=== PATIENT | male | born 1975 | race Caucasian/White ===

== ENCOUNTER 2021-08-09 17:54 | Emergency (ER) | payer OTHER ==
[2021-08-09 18:29] LABS: #Basophils 0.1 thou/uL (0.0-0.2); #Eosinphils 0.2 thou/uL (0.0-0.7); #Lymphocytes 2.5 thou/uL (1.20-3.40); #Monocytes 0.5 thou/uL (0.11-0.59); #Neutrophils 2.5 thou/uL (1.40-6.50); %Basophils 1.5 % (0.0-1.0); %Eosinophils 3.6 % (0.0-10.0); %Lymphocytes 43.2 % (21.0-51.0); %Monocytes 8.2 % (0.0-10.0); %Neutrophils 43.5 % (42.0-75.0); Hemoglobin 13.7 g/dL (14.0-18.0); Mean Corpuscular Hemoglobin 32.8 pg (27.0-31.0); Mean Corpuscular Volume 96.3 fL (78.0-98.0); Mean Platelet Volume 7.7 fL (7.4-10.4); Platelet Count 257 thou/uL (130-400); RBC Distribution Width 11.5 % (11.5-14.5); Red Blood Cell (RBC) Count 4.17 mill/uL (4.70-6.10); White Blood Cell (WBC) Count 5.7 thou/uL (4.8-10.8)
[2021-08-09 18:35] LABS: Bilirubin Negative (Negative); Blood, Urine Negative (Negative); Clarity Clear (Clear); Glucose, Urine (Dipstick) >=1000 mg/dL (Negative); Ketone, Urine 15 mg/dL (Negative); Leukocyte Negative (Negative); Nitrite Negative (Negative); Protein, Urine (Dipstick) Negative (Neg-Trace); Urobilinogen 0.2 mg/dL (Less than 2); pH, Urine 5.5 (5.0-9.0)
[2021-08-09 18:37] LABS: Specific Gravity, Urine 1.037 (1.002-1.036)
[2021-08-09] MEDS ORDERED: Insulin Regular 300 UNITS/3 ML VIAL ONE (18:45)
[2021-08-09 18:46] LABS: Amphetamine Not Detected (NotDetected); Barbiturates Screen Not Detected (NotDetected); Benzodiazepine Screen Not Detected (NotDetected); Cocaine Metabolite Screen Not Detected (NotDetected); Medtox Control Line Valid? VALID (VALID); Methadone Not Detected (NotDetected); Methamphetamine Not Detected (NotDetected); Opiate Screen Not Detected (NotDetected); Oxycodone Screen Not Detected (NotDetected); Phencyclidine (PCP) Not Detected (NotDetected); THC/Cannabinoid Screen Not Detected (NotDetected); Tricyclic Screen Not Detected (NotDetected)
[2021-08-09 18:47] LABS: ALT (SGPT) 76 U/L (8-55); AST (SGOT) 34 U/L (5-34); Albumin 4.3 g/dL (3.5-5.0); Alkaline Phosphatase 82 U/L (40-110); Anion Gap 15 mmol/L (10-20); BUN (Urea Nitrogen) 16 mg/dL (8.9-20.6); Bilirubin, Total 0.6 mg/dL (0.2-1.2); Calc. Creatinine Clearance 0 mL/min (70-130); Calcium 9.1 mg/dL (7.8-10.44); Carbon Dioxide 25 mmol/L (22-29); Chloride 91 mmol/L (98-107); Globulin 2.3 g/dL (2.4-3.5); Potassium 4.4 mmol/L (3.5-5.1); Protein, Total 6.6 g/dL (6.0-8.3); Sodium 127 mmol/L (136-145)
[2021-08-09 18:49] LABS: Glucose 629 mg/dL (70-105)
== END 2021-08-09 21:18 | disposition home or self-care (01) ==
LOC: BURERS 17:54
DX: E11.65 Type 2 diabetes mellitus with hyperglycemia (principal); I10 Essential (primary) hypertension; F17.210 Nicotine dependence, cigarettes, uncomplicated
CPT/HCPCS: 36416; 71045; 80053; 80306; 80307; 81003; 85025; 93005; 96374; 96376; J1815

== ENCOUNTER 2021-10-28 13:23 | Emergency (ER) | payer OTHER, SELFPAY ==
[2021-10-28 14:07] LABS: #Basophils 0.1 thou/uL (0.0-0.2); #Eosinphils 0.2 thou/uL (0.0-0.7); #Monocytes 0.6 thou/uL (0.11-0.59); #Neutrophils 3.4 thou/uL (1.40-6.50); %Eosinophils 3.1 % (0.0-10.0); %Monocytes 9.2 % (0.0-10.0); %Neutrophils 53.7 % (42.0-75.0); Hemoglobin 13.6 g/dL (14.0-18.0); Mean Corpuscular HGB CONC 35.4 g/dL (32.0-36.0); Mean Corpuscular Hemoglobin 33.3 pg (27.0-31.0); Mean Corpuscular Volume 94.2 fL (78.0-98.0); Platelet Count 297 thou/uL (130-400); RBC Distribution Width 11.1 % (11.5-14.5); Red Blood Cell (RBC) Count 4.07 mill/uL (4.70-6.10); White Blood Cell (WBC) Count 6.4 thou/uL (4.8-10.8)
[2021-10-28 14:14] LABS: Bilirubin Negative (Negative); Blood, Urine Negative (Negative); Clarity Clear (Clear); Glucose, Urine (Dipstick) 500 mg/dL (Negative); Ketone, Urine Negative (Negative); Leukocyte Negative (Negative); Nitrite Negative (Negative); Protein, Urine (Dipstick) Negative (Neg-Trace); Specific Gravity, Urine 1.015 (1.005-1.030)
[2021-10-28 14:25] LABS: ALT (SGPT) 21 U/L (8-55); AST (SGOT) 9 U/L (5-34); Albumin 4.2 g/dL (3.5-5.0); Alkaline Phosphatase 55 U/L (40-110); Anion Gap 15 mmol/L (10-20); BUN (Urea Nitrogen) 7 mg/dL (8.9-20.6); Bilirubin, Total 0.7 mg/dL (0.2-1.2); CK (CPK) 32 U/L (30-200); Calc. Creatinine Clearance 0 mL/min (70-130); Calcium 9.5 mg/dL (7.8-10.44); Carbon Dioxide 28 mmol/L (22-29); Chloride 93 mmol/L (98-107); Globulin 2.5 g/dL (2.4-3.5); Potassium 4.3 mmol/L (3.5-5.1); Protein, Total 6.7 g/dL (6.0-8.3); Sodium 132 mmol/L (136-145)
[2021-10-28 14:27] LABS: Amphetamine Not Detected (NotDetected); Barbiturates Screen Not Detected (NotDetected); Benzodiazepine Screen Not Detected (NotDetected); Cocaine Metabolite Screen Not Detected (NotDetected); Medtox Control Line Valid? VALID (VALID); Methadone Not Detected (NotDetected); Methamphetamine Not Detected (NotDetected); Opiate Screen Not Detected (NotDetected); Oxycodone Screen Not Detected (NotDetected); Phencyclidine (PCP) Not Detected (NotDetected); THC/Cannabinoid Screen Not Detected (NotDetected); Tricyclic Screen Not Detected (NotDetected)
[2021-10-28 14:30] LABS: Glucose 562 mg/dL (70-105)
[2021-10-28] MEDS ORDERED: Insulin Regular 300 UNITS/3 ML VIAL ONE (14:36)
== END 2021-10-28 16:00 | disposition home or self-care (01) ==
LOC: BURERS 13:23
DX: R19.7 Diarrhea, unspecified (principal); E11.65 Type 2 diabetes mellitus with hyperglycemia; I10 Essential (primary) hypertension; F17.210 Nicotine dependence, cigarettes, uncomplicated; Z79.4 Long term (current) use of insulin; Z79.84 Long term (current) use of oral hypoglycemic drugs; Z79.899 Other long term (current) drug therapy
CPT/HCPCS: 36415; 36416; 71045; 80053; 80306; 81003; 82550; 83605; 83880; 84484; 85025; 93005; 96374; J1815

== ENCOUNTER 2021-12-07 21:55 | Emergency (ER) | payer SELFPAY ==
[2021-12-07] MEDS ORDERED: Insulin Regular 300 UNITS/3 ML VIAL ONE (22:21)
[2021-12-07 22:27] LABS: #Basophils 0.1 thou/uL (0.0-0.2); #Eosinphils 0.3 thou/uL (0.0-0.7); #Lymphocytes 2.1 thou/uL (1.20-3.40); #Monocytes 0.6 thou/uL (0.11-0.59); #Neutrophils 3.2 thou/uL (1.40-6.50); %Basophils 1.7 % (0.0-1.0); %Lymphocytes 32.4 % (21.0-51.0); %Monocytes 9.9 % (0.0-10.0); %Neutrophils 50.9 % (42.0-75.0); Hemoglobin 12.9 g/dL (14.0-18.0); Mean Corpuscular HGB CONC 35.8 g/dL (32.0-36.0); Mean Corpuscular Hemoglobin 32.9 pg (27.0-31.0); Mean Corpuscular Volume 91.8 fL (78.0-98.0); Platelet Count 300 thou/uL (130-400); RBC Distribution Width 11.3 % (11.5-14.5); Red Blood Cell (RBC) Count 3.93 mill/uL (4.70-6.10); White Blood Cell (WBC) Count 6.3 thou/uL (4.8-10.8)
[2021-12-07 22:35] LABS: Bilirubin Negative (Negative); Blood, Urine Negative (Negative); Clarity Clear (Clear); Glucose, Urine (Dipstick) 500 mg/dL (Negative); Ketone, Urine Trace mg/dL (Negative); Leukocyte Negative (Negative); Nitrite Negative (Negative); Protein, Urine (Dipstick) Negative (Neg-Trace); Urobilinogen 0.2 mg/dL (Less than 2); pH, Urine 5.5 (5.0-9.0)
[2021-12-07 22:36] LABS: Base Excess-Venous 1.2 mmol/L (-2.0 to 3.0); Bicarbonate (HCO3v) 26.4 mmol/L (22.0-28.0); CO2 Tension (PvCO2) 42.8 mmHg (42.0-51.0); Calcium, Ionized 1.16 mmol/L (1.15-1.33); Chloride 95 mmol/L (98-107); Hemoglobin - Calc 12.4 g/dL (14.0-18.0); Potassium 4.9 mmol/L (3.5-5.1); Sodium 129 mmol/L (138-145); T. Carbon Dioxide 27.7 mmol/L (22.0-28.0); vO2 Saturation-calc 66.7 % (60.0-85.0)
[2021-12-07 22:38] LABS: Specific Gravity, Urine 1.036 (1.002-1.036)
[2021-12-07 22:39] LABS: ALT (SGPT) 24 U/L (8-55); AST (SGOT) 11 U/L (5-34); Albumin 3.8 g/dL (3.5-5.0); Alcohol Less than 10 mg/dL (Less than 10); Alkaline Phosphatase 60 U/L (40-110); Anion Gap 16 mmol/L (10-20); BUN (Urea Nitrogen) 13 mg/dL (8.9-20.6); Bilirubin, Total 0.7 mg/dL (0.2-1.2); Calc. Creatinine Clearance 0 mL/min (70-130); Calcium 8.9 mg/dL (7.8-10.44); Carbon Dioxide 26 mmol/L (22-29); Chloride 93 mmol/L (98-107); Globulin 2.8 g/dL (2.4-3.5); Magnesium 1.8 mg/dL (1.6-2.6); Protein, Total 6.6 g/dL (6.0-8.3); Sodium 130 mmol/L (136-145)
[2021-12-07 22:41] LABS: Glucose 670 mg/dL (70-105)
[2021-12-08] MEDS ORDERED: Thiamine HCl 200 MG/2 ML VIAL ONE (00:53)
[2021-12-08] MEDS ORDERED: Insulin Regular 300 UNITS/3 ML VIAL ONE (08:28)
== END 2021-12-08 08:42 | disposition home or self-care (01) ==
LOC: BURERS 21:55
DX: E10.65 Type 1 diabetes mellitus with hyperglycemia (principal); I10 Essential (primary) hypertension; F17.210 Nicotine dependence, cigarettes, uncomplicated; Z79.4 Long term (current) use of insulin; Z79.84 Long term (current) use of oral hypoglycemic drugs; Z79.899 Other long term (current) drug therapy
CPT/HCPCS: 36415; 36416; 80053; 80307; 81003; 82330; 82435; 82803; 83735; 84132; 84295; 85014; 85025; 93005; 96361; 96374; 96375; J1815; J3411

== ENCOUNTER 2022-01-04 09:34 | Emergency (ER) | payer SELFPAY ==
[2022-01-04 09:58] LABS: #Basophils 0.1 thou/uL (0.0-0.2); #Eosinphils 0.4 thou/uL (0.0-0.7); #Monocytes 0.3 thou/uL (0.11-0.59); #Neutrophils 2.9 thou/uL (1.40-6.50); %Basophils 1.2 % (0.0-1.0); %Eosinophils 5.5 % (0.0-10.0); %Lymphocytes 45.5 % (21.0-51.0); %Monocytes 4.3 % (0.0-10.0); %Neutrophils 43.6 % (42.0-75.0); Hemoglobin 13.2 g/dL (14.0-18.0); Mean Corpuscular HGB CONC 35.3 g/dL (32.0-36.0); Mean Corpuscular Hemoglobin 31.7 pg (27.0-31.0); Mean Corpuscular Volume 89.9 fL (78.0-98.0); Mean Platelet Volume 6.9 fL (7.4-10.4); Platelet Count 290 thou/uL (130-400); RBC Distribution Width 11.6 % (11.5-14.5); Red Blood Cell (RBC) Count 4.17 mill/uL (4.70-6.10); White Blood Cell (WBC) Count 6.6 thou/uL (4.8-10.8)
[2022-01-04 10:09] LABS: ALT (SGPT) 37 U/L (8-55); AST (SGOT) 14 U/L (5-34); Alkaline Phosphatase 51 U/L (40-110); Anion Gap 14 mmol/L (10-20); BUN (Urea Nitrogen) 14 mg/dL (8.9-20.6); Bilirubin, Total 0.8 mg/dL (0.2-1.2); Calc. Creatinine Clearance 0 mL/min (70-130); Calcium 9.6 mg/dL (7.8-10.44); Carbon Dioxide 32 mmol/L (22-29); Chloride 96 mmol/L (98-107); Estimated GFR 112; Globulin 2.7 g/dL (2.4-3.5); Glucose 102 mg/dL (70-105); Potassium 3.9 mmol/L (3.5-5.1); Protein, Total 6.7 g/dL (6.0-8.3); Sodium 138 mmol/L (136-145)
== END 2022-01-04 10:34 | disposition home or self-care (01) ==
LOC: BURERS 09:34
DX: R53.1 Weakness (principal); E11.9 Type 2 diabetes mellitus without complications; I10 Essential (primary) hypertension; F17.210 Nicotine dependence, cigarettes, uncomplicated; Z79.899 Other long term (current) drug therapy; Z79.4 Long term (current) use of insulin; Z79.84 Long term (current) use of oral hypoglycemic drugs
CPT/HCPCS: 36415; 80053; 85025; 99284

== ENCOUNTER 2022-01-21 13:18 | Emergency (ER) | payer SELFPAY ==
[2022-01-21] MEDS ORDERED: Ondansetron PF 4 MG/2 ML Vial ONE (13:50)
[2022-01-21 14:02] LABS: #Basophils 0.1 thou/uL (0.0-0.2); #Eosinphils 0.1 thou/uL (0.0-0.7); #Monocytes 0.3 thou/uL (0.11-0.59); %Basophils 1.9 % (0.0-1.0); %Eosinophils 2.2 % (0.0-10.0); %Lymphocytes 35.3 % (21.0-51.0); %Neutrophils 54.6 % (42.0-75.0); Hemoglobin 13.8 g/dL (14.0-18.0); Mean Corpuscular HGB CONC 33.8 g/dL (32.0-36.0); Mean Corpuscular Hemoglobin 31.3 pg (27.0-31.0); Mean Corpuscular Volume 92.6 fL (78.0-98.0); Mean Platelet Volume 7.8 fL (7.4-10.4); Platelet Count 288 thou/uL (130-400); RBC Distribution Width 11.7 % (11.5-14.5); White Blood Cell (WBC) Count 5.6 thou/uL (4.8-10.8)
[2022-01-21 14:11] LABS: Base Excess-Venous -1.7 mmol/L (-2.0 to 3.0); Bicarbonate (HCO3v) 22.1 mmol/L (22.0-28.0); CO2 Tension (PvCO2) 33.5 mmHg (42.0-51.0); Calcium, Ionized 1.12 mmol/L (1.15-1.33); Chloride 93 mmol/L (98-107); Hemoglobin - Calc 12.1 g/dL (14.0-18.0); Potassium 4.2 mmol/L (3.5-5.1); Sodium 130 mmol/L (138-145); T. Carbon Dioxide 23.1 mmol/L (22.0-28.0)
[2022-01-21 14:15] LABS: ALT (SGPT) 22 U/L (8-55); AST (SGOT) 11 U/L (5-34); Albumin 3.7 g/dL (3.5-5.0); Alkaline Phosphatase 43 U/L (40-110); Anion Gap 19 mmol/L (10-20); BUN (Urea Nitrogen) 19 mg/dL (8.9-20.6); Bilirubin, Total 0.7 mg/dL (0.2-1.2); Calc. Creatinine Clearance 0 mL/min (70-130); Carbon Dioxide 23 mmol/L (22-29); Chloride 93 mmol/L (98-107); Estimated GFR 109; Globulin 2.4 g/dL (2.4-3.5); Glucose 426 mg/dL (70-105); Potassium 4.4 mmol/L (3.5-5.1); Protein, Total 6.1 g/dL (6.0-8.3); Sodium 131 mmol/L (136-145)
[2022-01-21 14:24] LABS: Bilirubin Moderate (Negative); Blood, Urine Trace (Negative); Clarity Clear (Clear); Glucose, Urine (Dipstick) >=1000 mg/dL (Negative); Ketone, Urine > or equal to 80 mg/dL (Negative); Leukocyte Negative (Negative); Nitrite Negative (Negative); Protein, Urine (Dipstick) Trace mg/dL (Neg-Trace); pH, Urine 5.5 (5.0-9.0)
[2022-01-21 14:30] LABS: Bacteria/HPF Rare-Few HPF (None Seen); RBC/HPF 0-3 HPF (0-3); Squamous Epithelial None Seen HPF (0-3); WBC/HPF 0-3 HPF (0-3)
[2022-01-21] MEDS ORDERED: Insulin Regular 300 UNITS/3 ML VIAL ONE (14:32)
== END 2022-01-21 15:49 | disposition home or self-care (01) ==
LOC: BURERS 13:18
DX: E11.65 Type 2 diabetes mellitus with hyperglycemia (principal); E86.0 Dehydration; I10 Essential (primary) hypertension; E78.5 Hyperlipidemia, unspecified; F17.210 Nicotine dependence, cigarettes, uncomplicated; Z79.4 Long term (current) use of insulin; Z79.899 Other long term (current) drug therapy
CPT/HCPCS: 36416; 80053; 81003; 81015; 82330; 82803; 84443; 85025; 93005; 96361; 96374; 96375; J1815; J2405

== ENCOUNTER 2022-03-06 09:57 | Emergency (ER) | payer OTHER ==
[2022-03-06 10:30] LABS: #Basophils 0.2 thou/uL (0.0-0.2); #Eosinphils 1.1 thou/uL (0.0-0.7); #Lymphocytes 3.1 thou/uL (1.20-3.40); #Monocytes 0.5 thou/uL (0.11-0.59); #Neutrophils 3.2 thou/uL (1.40-6.50); %Basophils 2.3 % (0.0-1.0); %Eosinophils 13.2 % (0.0-10.0); %Lymphocytes 38.7 % (21.0-51.0); %Monocytes 6.1 % (0.0-10.0); %Neutrophils 39.7 % (42.0-75.0); Hemoglobin 13.4 g/dL (14.0-18.0); Mean Corpuscular HGB CONC 34.9 g/dL (32.0-36.0); Mean Corpuscular Hemoglobin 31.8 pg (27.0-31.0); Mean Corpuscular Volume 90.9 fL (78.0-98.0); Mean Platelet Volume 9.8 fL (7.4-10.4); Platelet Count 230 thou/uL (130-400); RBC Distribution Width 11.9 % (11.5-14.5); Red Blood Cell (RBC) Count 4.23 mill/uL (4.70-6.10)
[2022-03-06 10:56] LABS: ALT (SGPT) 49 U/L (8-55); AST (SGOT) 24 U/L (5-34); Albumin 3.9 g/dL (3.5-5.0); Alkaline Phosphatase 58 U/L (40-110); Anion Gap 14 mmol/L (10-20); BUN (Urea Nitrogen) 15 mg/dL (8.9-20.6); Bilirubin, Total 0.4 mg/dL (0.2-1.2); Calc. Creatinine Clearance 0 mL/min (70-130); Calcium 9.1 mg/dL (7.8-10.44); Carbon Dioxide 26 mmol/L (22-29); Chloride 98 mmol/L (98-107); Estimated GFR 109; Globulin 2.4 g/dL (2.4-3.5); Glucose 410 mg/dL (70-105); Potassium 4.2 mmol/L (3.5-5.1); Protein, Total 6.3 g/dL (6.0-8.3); Sodium 134 mmol/L (136-145)
[2022-03-06 11:07] LABS: Bilirubin Negative (Negative); Blood, Urine Negative (Negative); Clarity Clear (Clear); Glucose, Urine (Dipstick) >=1000 mg/dL (Negative); Ketone, Urine 40 mg/dL (Negative); Leukocyte Negative (Negative); Nitrite Negative (Negative); Protein, Urine (Dipstick) Negative (Neg-Trace); Specific Gravity, Urine 1.015 (1.005-1.030); Urobilinogen 0.2 mg/dL (Less than 2)
== END 2022-03-06 11:47 | disposition home or self-care (01) ==
LOC: BURERS 09:57
DX: E11.65 Type 2 diabetes mellitus with hyperglycemia (principal); E78.5 Hyperlipidemia, unspecified; I10 Essential (primary) hypertension; F17.210 Nicotine dependence, cigarettes, uncomplicated; Z20.822 Contact with and (suspected) exposure to COVID-19
CPT/HCPCS: 36416; 71045; 80053; 81003; 84484; 85025; 93005; 94760; 96361; 96374; U0003; U0005

== ENCOUNTER 2022-04-11 15:16 | Emergency (ER) | payer OTHER, SELFPAY ==
[2022-04-11 15:50] LABS: #Basophils 0.1 thou/uL (0.0-0.2); #Eosinphils 0.1 thou/uL (0.0-0.7); #Lymphocytes 1.9 thou/uL (1.20-3.40); #Monocytes 0.4 thou/uL (0.11-0.59); #Neutrophils 9.4 thou/uL (1.40-6.50); %Basophils 0.9 % (0.0-1.0); %Eosinophils 0.5 % (0.0-10.0); %Lymphocytes 16.1 % (21.0-51.0); %Monocytes 3.7 % (0.0-10.0); %Neutrophils 78.8 % (42.0-75.0); Hemoglobin 13.5 g/dL (14.0-18.0); Mean Corpuscular Hemoglobin 32.1 pg (27.0-31.0); Mean Corpuscular Volume 97.2 fL (78.0-98.0); Mean Platelet Volume 8.4 fL (7.4-10.4); Platelet Count 385 thou/uL (130-400); RBC Distribution Width 12.3 % (11.5-14.5); Red Blood Cell (RBC) Count 4.21 mill/uL (4.70-6.10); White Blood Cell (WBC) Count 11.9 thou/uL (4.8-10.8)
[2022-04-11 16:10] LABS: ALT (SGPT) 19 U/L (8-55); AST (SGOT) 12 U/L (5-34); Albumin 3.6 g/dL (3.5-5.0); Alkaline Phosphatase 97 U/L (40-110); Anion Gap 20 mmol/L (10-20); BUN (Urea Nitrogen) 13 mg/dL (8.9-20.6); Bilirubin, Total 0.5 mg/dL (0.2-1.2); Calc. Creatinine Clearance 0 mL/min (70-130); Calcium 9.3 mg/dL (7.8-10.44); Carbon Dioxide 27 mmol/L (22-29); Chloride 87 mmol/L (98-107); Estimated GFR 74; Globulin 3.7 g/dL (2.4-3.5); Lipase 16 U/L (8-78); Potassium 4.3 mmol/L (3.5-5.1); Protein, Total 7.3 g/dL (6.0-8.3); Sodium 130 mmol/L (136-145)
[2022-04-11 16:11] LABS: Glucose 778 mg/dL (70-105)
[2022-04-11 16:26] LABS: CKMB 1.2 ng/mL (0-6.6)
[2022-04-11] MEDS ORDERED: Insulin Regular 300 UNITS/3 ML VIAL ONE (16:30)
[2022-04-11] MEDS ORDERED: Ketorolac Tromethamine 30 MG/ML VIAL ONE (17:29)
[2022-04-11 17:44] LABS: Base Excess-Venous 2.3 mmol/L (-2.0 to 3.0); Bicarbonate (HCO3v) 28.5 mmol/L (22.0-28.0); CO2 Tension (PvCO2) 50.1 mmHg (42.0-51.0); Calcium, Ionized 1.14 mmol/L (1.15-1.33); Chloride 94 mmol/L (98-107); Hemoglobin - Calc 12.6 g/dL (14.0-18.0); Potassium 3.2 mmol/L (3.5-5.1); Sodium 133 mmol/L (138-145); vO2 Saturation-calc 46.1 % (60.0-85.0)
== END 2022-04-11 19:24 | disposition home or self-care (01) ==
LOC: BURERS 15:16
DX: R07.89 Other chest pain (principal); E11.65 Type 2 diabetes mellitus with hyperglycemia; C44.201 Unspecified malignant neoplasm of skin of unspecified ear and external auricular canal; I11.0 Hypertensive heart disease with heart failure; I50.9 Heart failure, unspecified; E78.5 Hyperlipidemia, unspecified; F17.210 Nicotine dependence, cigarettes, uncomplicated
CPT/HCPCS: 36416; 71045; 80053; 82330; 82553; 82803; 83690; 84484; 85025; 85379; 93005; 94760; 96361; 96374; 96375; J1815; J1885

== ENCOUNTER 2022-04-21 13:15 | Emergency (ER) | payer SELFPAY ==
[2022-04-21] MEDS ORDERED: Iopamidol 370 76% 100 ML VIAL FS ONE (13:16)
[2022-04-21 13:43] LABS: #Basophils 0.1 thou/uL (0.0-0.2); #Lymphocytes 1.5 thou/uL (1.20-3.40); #Monocytes 0.9 thou/uL (0.11-0.59); #Neutrophils 17.4 thou/uL (1.40-6.50); %Basophils 0.5 % (0.0-1.0); %Eosinophils 0.1 % (0.0-10.0); %Lymphocytes 7.4 % (21.0-51.0); %Monocytes 4.3 % (0.0-10.0); %Neutrophils 87.6 % (42.0-75.0); Hemoglobin 11.4 g/dL (14.0-18.0); Mean Corpuscular HGB CONC 32.6 g/dL (32.0-36.0); Mean Corpuscular Hemoglobin 30.9 pg (27.0-31.0); Mean Platelet Volume 6.8 fL (7.4-10.4); Platelet Count 544 thou/uL (130-400); RBC Distribution Width 11.9 % (11.5-14.5); Red Blood Cell (RBC) Count 3.69 mill/uL (4.70-6.10); White Blood Cell (WBC) Count 19.8 thou/uL (4.8-10.8)
[2022-04-21 14:00] LABS: ALT (SGPT) 11 U/L (8-55); AST (SGOT) 15 U/L (5-34); Albumin 2.8 g/dL (3.5-5.0); Alkaline Phosphatase 133 U/L (40-110); Anion Gap 16 mmol/L (10-20); BUN (Urea Nitrogen) 10 mg/dL (8.9-20.6); Bilirubin, Total 0.6 mg/dL (0.2-1.2); Calc. Creatinine Clearance 0 mL/min (70-130); Calcium 9.3 mg/dL (7.8-10.44); Carbon Dioxide 30 mmol/L (22-29); Chloride 91 mmol/L (98-107); Estimated GFR 113; Globulin 4.2 g/dL (2.4-3.5); Glucose 389 mg/dL (70-105); Potassium 4.6 mmol/L (3.5-5.1); Sodium 132 mmol/L (136-145)
[2022-04-21] MEDS ORDERED: Ibuprofen 200 MG TAB ONE (15:20)
== END 2022-04-21 15:46 | disposition short-term general hospital (02) ==
LOC: BURERS 13:15
DX: D17.30 Benign lipomatous neoplasm of skin and subcutaneous tissue of unspecified sites (principal); R91.8 Other nonspecific abnormal finding of lung field; D72.829 Elevated white blood cell count, unspecified; E11.65 Type 2 diabetes mellitus with hyperglycemia; E78.5 Hyperlipidemia, unspecified; I50.9 Heart failure, unspecified; F17.210 Nicotine dependence, cigarettes, uncomplicated
CPT/HCPCS: 36415; 71260; 80053; 85025; Q9967

== ENCOUNTER 2022-05-07 18:36 | Emergency (ER) | payer SELFPAY ==
[2022-05-07] MEDS ORDERED: cefTRIAXone\\ROCEPHIN 2 GM in Sodium Chloride 0.9% 100 ML IVPB SCH (19:00)
[2022-05-07 19:49] LABS: Bilirubin Negative (Negative); Blood, Urine Trace (Negative); Clarity Clear (Clear); Glucose, Urine (Dipstick) >=1000 mg/dL (Negative); Ketone, Urine Trace mg/dL (Negative); Leukocyte Negative (Negative); Nitrite Negative (Negative); Protein, Urine (Dipstick) Negative (Neg-Trace); Urobilinogen 0.2 mg/dL (Less than 2)
[2022-05-07 19:50] LABS: #Basophils 0.1 thou/uL (0.0-0.2); #Eosinphils 0.2 thou/uL (0.0-0.7); #Lymphocytes 2.9 thou/uL (1.20-3.40); #Monocytes 0.6 thou/uL (0.11-0.59); #Neutrophils 5.5 thou/uL (1.40-6.50); %Basophils 1.3 % (0.0-1.0); %Eosinophils 2.5 % (0.0-10.0); %Lymphocytes 31.2 % (21.0-51.0); %Monocytes 6.7 % (0.0-10.0); %Neutrophils 58.3 % (42.0-75.0); Hemoglobin 8.7 g/dL (14.0-18.0); Mean Corpuscular HGB CONC 32.6 g/dL (32.0-36.0); Mean Corpuscular Hemoglobin 31.3 pg (27.0-31.0); Mean Corpuscular Volume 95.9 fl (78.0-98.0); Mean Platelet Volume 6.6 fL (7.4-10.4); Platelet Count 569 thou/uL (130-400); RBC Distribution Width 14.4 % (11.5-14.5); Red Blood Cell (RBC) Count 2.79 mill/uL (4.70-6.10); White Blood Cell (WBC) Count 9.4 thou/uL (4.8-10.8)
[2022-05-07 19:58] LABS: Bicarbonate (HCO3v) 28.3 mmol/L (22.0-28.0); CO2 Tension (PvCO2) 52.4 mmHg (42.0-51.0); Calcium, Ionized 1.23 mmol/L (1.15-1.33); Chloride 96 mmol/L (98-107); Potassium 4.2 mmol/L (3.5-5.1); Sodium 135 mmol/L (138-145); vO2 Saturation-calc 84.2 % (60.0-85.0)
[2022-05-07 20:06] LABS: ALT (SGPT) 43 U/L (8-55); AST (SGOT) 29 U/L (5-34); Albumin 2.7 g/dL (3.5-5.0); Alkaline Phosphatase 178 U/L (40-110); Anion Gap 12 mmol/L (10-20); BUN (Urea Nitrogen) 10 mg/dL (8.9-20.6); Bilirubin, Total Less than 0.2 mg/dL (0.2-1.2); Calc. Creatinine Clearance 0 mL/min (70-130); Calcium 8.6 mg/dL (7.8-10.44); Carbon Dioxide 28 mmol/L (22-29); Chloride 97 mmol/L (98-107); Estimated GFR 115; Globulin 4.5 g/dL (2.4-3.5); Glucose 498 mg/dL (70-105); Lipase 7 U/L (8-78); Magnesium 1.5 mg/dL (1.6-2.6); Potassium 4.2 mmol/L (3.5-5.1); Protein, Total 7.2 g/dL (6.0-8.3); Sodium 133 mmol/L (136-145)
[2022-05-07 20:14] LABS: Bacteria/HPF Rare-Few HPF (None Seen); Squamous Epithelial 0-3 HPF (0-3); WBC/HPF 21-50 HPF (0-3)
[2022-05-07] MEDS ORDERED: Magnesium 2 GM/50 ML BAG (IN WATER) ONE (20:27)
== END 2022-05-07 22:22 | disposition home or self-care (01) ==
LOC: BURERS 18:36
DX: E11.65 Type 2 diabetes mellitus with hyperglycemia (principal); L89.152 Pressure ulcer of sacral region, stage 2; E83.42 Hypomagnesemia; I11.0 Hypertensive heart disease with heart failure; I50.9 Heart failure, unspecified; F17.210 Nicotine dependence, cigarettes, uncomplicated
CPT/HCPCS: 36415; 36416; 80053; 81003; 81015; 82330; 82803; 83605; 83690; 83735; 84484; 85025; 93005; 96361; 96374; J3475

== ENCOUNTER 2022-05-13 10:00 | Inpatient (IN) | payer OTHER, BC ==
[2022-05-13] MEDS ORDERED: Bisacodyl 5 MG TAB PO PRN (10:55)
[2022-05-13] MEDS ORDERED: Senokot S 8.6-50 MG TAB PO PRN (10:55)
[2022-05-13] MEDS ORDERED: Bisacodyl 10 MG SUPP PR PRN (10:55)
[2022-05-13] MEDS ORDERED: Ondansetron PF 4 MG/2 ML Vial IVP PRN (10:55)
[2022-05-13] MEDS ORDERED: HumaLOG 300 UNITS/3 ML VIAL SC PRN (12:24)
[2022-05-13] MEDS ORDERED: Dextrose 5% in Water 1,000 ML IV PRN (12:24)
[2022-05-13] MEDS ORDERED: Dextrose 50% Abboject 50 ML SYRINGE SLOW IVP PRN (12:24)
[2022-05-13] MEDS ORDERED: Ondansetron ODT 4 MG TAB PO PRN (12:44)
[2022-05-13] MEDS: cefTRIAXone\\ROCEPHIN 2 GM in Sodium Chloride 0.9% 100 ML IVPB SCH (16:06)
[2022-05-13] MEDS: Acetaminophen 325 MG TAB PO PRN ×2 (16:13→21:31)
[2022-05-13] MEDS ORDERED: metFORMIN 500 MG TAB PO SCH (21:00)
[2022-05-13] MEDS ORDERED: Lantus 1000 UNITS/10 ML VIAL SC SCH (21:00)
[2022-05-13] MEDS: Famotidine 20 MG TAB PO SCH (21:30)
[2022-05-13] MEDS: Gabapentin 300 MG CAP PO SCH (21:32)
[2022-05-13] MEDS: HumaLOG 300 UNITS/3 ML VIAL SC PRN (21:33)
[2022-05-14] MEDS: Acetaminophen 325 MG TAB PO PRN ×2 (03:34→09:46)
[2022-05-14 05:16] LABS: #Basophils 0.1 thou/uL (0.0-0.2); #Eosinphils 0.6 thou/uL (0.0-0.7); #Lymphocytes 3.1 thou/uL (1.20-3.40); #Monocytes 0.6 thou/uL (0.11-0.59); #Neutrophils 3.4 thou/uL (1.40-6.50); %Basophils 1.1 % (0.0-1.0); %Eosinophils 7.2 % (0.0-10.0); %Lymphocytes 39.5 % (21.0-51.0); %Monocytes 8.1 % (0.0-10.0); Hemoglobin 9.9 g/dL (14.0-18.0); Mean Corpuscular HGB CONC 31.9 g/dL (32.0-36.0); Mean Platelet Volume 7.3 fL (7.4-10.4); Platelet Count 392 thou/uL (130-400); RBC Distribution Width 14.9 % (11.5-14.5); Red Blood Cell (RBC) Count 3.21 mill/uL (4.70-6.10); White Blood Cell (WBC) Count 7.8 thou/uL (4.8-10.8)
[2022-05-14 05:19] LABS: ALT (SGPT) 21 U/L (8-55); AST (SGOT) 17 U/L (5-34); Albumin 2.7 g/dL (3.5-5.0); Alkaline Phosphatase 105 U/L (40-110); Anion Gap 14 mmol/L (10-20); BUN (Urea Nitrogen) Less than 4 mg/dL (8.9-20.6); Bilirubin, Total 0.2 mg/dL (0.2-1.2); Calc. Creatinine Clearance 73 mL/min (70-130); Calcium 8.7 mg/dL (7.8-10.44); Carbon Dioxide 29 mmol/L (22-29); Chloride 93 mmol/L (98-107); Estimated GFR 112; Globulin 4.4 g/dL (2.4-3.5); Potassium 4.3 mmol/L (3.5-5.1); Protein, Total 7.1 g/dL (6.0-8.3); Sodium 132 mmol/L (136-145)
[2022-05-14 05:32] LABS: Glucose 588 mg/dL (70-105)
[2022-05-14] MEDS: Loperamide HCl 2 MG CAP PO PRN ×3 (05:47→22:31)
[2022-05-14] MEDS ORDERED: Lantus 1000 UNITS/10 ML VIAL SC SCH ×2 (07:16→09:00)
[2022-05-14] MEDS: Enoxaparin Sodium 40 MG/0.4 ML SYRINGE SC SCH (09:37)
[2022-05-14] MEDS: Nicotine 7 MG PATCH TD SCH (09:37)
[2022-05-14] MEDS: Famotidine 20 MG TAB PO SCH ×2 (09:37→22:31)
[2022-05-14] MEDS: Saccharomyces boulardii 250 MG CAP PO SCH (09:38)
[2022-05-14] MEDS: HumaLOG 300 UNITS/3 ML VIAL SC PRN ×2 (09:40→12:56)
[2022-05-14 15:15] LABS: Hemoglobin A1c 11.1 % (4.0-6.0)
[2022-05-14] MEDS: cefTRIAXone\\ROCEPHIN 2 GM in Sodium Chloride 0.9% 100 ML IVPB SCH (15:44)
[2022-05-14 21:03] LABS: Campy jejuni + coli by PCR Negative (Negative); STEC Shiga Toxin 1+2 Negative (Negative); Salmonella spp. by PCR Negative (Negative); Shigella spp + EIEC by PCR Negative (Negative)
[2022-05-14] MEDS: Gabapentin 300 MG CAP PO SCH (22:32)
[2022-05-15] MEDS ORDERED: Lantus 1000 UNITS/10 ML VIAL SC SCH (08:30)
[2022-05-15] MEDS: Famotidine 20 MG TAB PO SCH ×2 (08:39→22:21)
[2022-05-15] MEDS: Saccharomyces boulardii 250 MG CAP PO SCH (08:39)
[2022-05-15] MEDS: Nicotine 7 MG PATCH TD SCH (08:39)
[2022-05-15] MEDS: Enoxaparin Sodium 40 MG/0.4 ML SYRINGE SC SCH (08:39)
[2022-05-15] MEDS: HYDROcodone/Acetaminophen 5/325 mg Tablet PO PRN ×3 (09:16→22:22)
[2022-05-15] MEDS: cefTRIAXone\\ROCEPHIN 2 GM in Sodium Chloride 0.9% 100 ML IVPB SCH (15:02)
[2022-05-15] MEDS: Gabapentin 300 MG CAP PO SCH (22:21)
[2022-05-16] MEDS: Enoxaparin Sodium 40 MG/0.4 ML SYRINGE SC SCH (08:01)
[2022-05-16] MEDS: Saccharomyces boulardii 250 MG CAP PO SCH (08:02)
[2022-05-16] MEDS: Famotidine 20 MG TAB PO SCH ×2 (08:02→21:52)
[2022-05-16] MEDS: Lantus 1000 UNITS/10 ML VIAL SC SCH ×2 (08:03→23:24)
[2022-05-16] MEDS: Nicotine 7 MG PATCH TD SCH (08:09)
[2022-05-16] MEDS: HYDROcodone/Acetaminophen 5/325 mg Tablet PO PRN ×2 (09:21→19:46)
[2022-05-16] MEDS: HumaLOG 300 UNITS/3 ML VIAL SC PRN ×2 (11:59→23:23)
[2022-05-16] MEDS: cefTRIAXone\\ROCEPHIN 2 GM in Sodium Chloride 0.9% 100 ML IVPB SCH (15:31)
[2022-05-16] MEDS: Gabapentin 300 MG CAP PO SCH (21:52)
[2022-05-16] MEDS: Loperamide HCl 2 MG CAP PO PRN (21:52)
[2022-05-17] MEDS: Loperamide HCl 2 MG CAP PO PRN ×2 (00:50→18:17)
[2022-05-17] MEDS: HYDROcodone/Acetaminophen 5/325 mg Tablet PO PRN ×3 (00:50→20:07)
[2022-05-17] MEDS: Enoxaparin Sodium 40 MG/0.4 ML SYRINGE SC SCH (08:52)
[2022-05-17] MEDS: Famotidine 20 MG TAB PO SCH ×2 (08:53→20:06)
[2022-05-17] MEDS: Nicotine 7 MG PATCH TD SCH (08:53)
[2022-05-17] MEDS: Saccharomyces boulardii 250 MG CAP PO SCH (08:53)
[2022-05-17] MEDS: Lantus 1000 UNITS/10 ML VIAL SC SCH ×2 (08:54→13:14)
[2022-05-17] MEDS: HumaLOG 300 UNITS/3 ML VIAL SC PRN (13:17)
[2022-05-17] MEDS: cefTRIAXone\\ROCEPHIN 2 GM in Sodium Chloride 0.9% 100 ML IVPB SCH (16:05)
[2022-05-17] MEDS ORDERED: Dextrose 50% Abboject 50 ML SYRINGE SLOW IVP PRN (17:01)
[2022-05-17] MEDS ORDERED: Dextrose 5% in Water 1,000 ML IV PRN (17:01)
[2022-05-17] MEDS ORDERED: Diphenoxylate HCl/Atropine Tablet PO SCH (20:00)
[2022-05-17] MEDS: Gabapentin 300 MG CAP PO SCH (20:06)
[2022-05-18] MEDS: HYDROcodone/Acetaminophen 5/325 mg Tablet PO PRN ×3 (04:47→20:57)
[2022-05-18] MEDS: Nicotine 14 MG PATCH TOP SCH (08:43)
[2022-05-18] MEDS: Famotidine 20 MG TAB PO SCH ×2 (08:43→20:58)
[2022-05-18] MEDS: Saccharomyces boulardii 250 MG CAP PO SCH (08:43)
[2022-05-18] MEDS: Gabapentin 300 MG CAP PO SCH ×2 (08:44→20:57)
[2022-05-18] MEDS: Enoxaparin Sodium 40 MG/0.4 ML SYRINGE SC SCH (08:46)
[2022-05-18] MEDS: HumaLOG 300 UNITS/3 ML VIAL SC PRN (12:23)
[2022-05-18] MEDS: cefTRIAXone\\ROCEPHIN 2 GM in Sodium Chloride 0.9% 100 ML IVPB SCH (15:50)
[2022-05-19] MEDS: HYDROcodone/Acetaminophen 5/325 mg Tablet PO PRN ×3 (03:10→22:54)
[2022-05-19 05:19] LABS: #Basophils 0.1 thou/uL (0.0-0.2); #Eosinphils 0.5 thou/uL (0.0-0.7); #Lymphocytes 2.2 thou/uL (1.20-3.40); #Monocytes 0.8 thou/uL (0.11-0.59); #Neutrophils 3.9 thou/uL (1.40-6.50); %Basophils 1.9 % (0.0-1.0); %Eosinophils 6.9 % (0.0-10.0); %Lymphocytes 29.5 % (21.0-51.0); %Monocytes 10.2 % (0.0-10.0); %Neutrophils 51.5 % (42.0-75.0); Hemoglobin 9.6 g/dL (14.0-18.0); Mean Corpuscular HGB CONC 31.3 g/dL (32.0-36.0); Mean Corpuscular Hemoglobin 31.2 pg (27.0-31.0); Mean Corpuscular Volume 99.7 fl (78.0-98.0); Mean Platelet Volume 7.4 fL (7.4-10.4); Platelet Count 383 10x3/uL (130-400); RBC Distribution Width 15.3 % (11.5-14.5); Red Blood Cell (RBC) Count 3.08 mill/uL (4.70-6.10); White Blood Cell (WBC) Count 7.6 10x3/uL (4.8-10.8)
[2022-05-19 05:34] LABS: Anion Gap 13 mmol/L (10-20); BUN (Urea Nitrogen) 31 mg/dL (8.9-20.6); Calc. Creatinine Clearance 55 mL/min (70-130); Carbon Dioxide 28 mmol/L (22-29); Chloride 92 mmol/L (98-107); Estimated GFR 96; Potassium 4.5 mmol/L (3.5-5.1); Sodium 128 mmol/L (136-145)
[2022-05-19 05:49] LABS: Glucose 796 mg/dL (70-105)
[2022-05-19] MEDS ORDERED: Dextrose 5% in Water 1,000 ML IV PRN (06:15)
[2022-05-19] MEDS ORDERED: Dextrose 50% Abboject 50 ML SYRINGE IVP PRN (06:15)
[2022-05-19] MEDS ORDERED: HumaLOG 300 UNITS/3 ML VIAL SC PRN (06:15)
[2022-05-19] MEDS: Loperamide HCl 2 MG CAP PO PRN ×3 (06:21→20:33)
[2022-05-19] MEDS ORDERED: metFORMIN XR 500 MG TAB PO SCH (08:45)
[2022-05-19] MEDS: Nicotine 14 MG PATCH TOP SCH (09:27)
[2022-05-19] MEDS: Enoxaparin Sodium 40 MG/0.4 ML SYRINGE SC SCH (09:27)
[2022-05-19] MEDS: Gabapentin 300 MG CAP PO SCH ×2 (09:27→20:33)
[2022-05-19] MEDS: Famotidine 20 MG TAB PO SCH ×2 (09:28→20:34)
[2022-05-19] MEDS: Saccharomyces boulardii 250 MG CAP PO SCH (09:28)
[2022-05-19] MEDS: HumaLOG 300 UNITS/3 ML VIAL SC PRN ×3 (09:31→16:39)
[2022-05-19] MEDS: cefTRIAXone\\ROCEPHIN 2 GM in Sodium Chloride 0.9% 100 ML IVPB SCH ×2 (16:17→16:19)
[2022-05-19] MEDS: metFORMIN XR 500 MG TAB PO SCH (16:24)
[2022-05-19] MEDS: Lantus 1000 UNITS/10 ML VIAL SC SCH (20:37)
[2022-05-20] MEDS: Enoxaparin Sodium 40 MG/0.4 ML SYRINGE SC SCH (08:38)
[2022-05-20] MEDS: Nicotine 14 MG PATCH TOP SCH (08:38)
[2022-05-20] MEDS: Saccharomyces boulardii 250 MG CAP PO SCH (08:40)
[2022-05-20] MEDS: Gabapentin 300 MG CAP PO SCH ×2 (08:40→20:11)
[2022-05-20] MEDS: metFORMIN XR 500 MG TAB PO SCH ×2 (08:41→16:34)
[2022-05-20] MEDS: Famotidine 20 MG TAB PO SCH ×2 (08:42→20:12)
[2022-05-20] MEDS: HumaLOG 300 UNITS/3 ML VIAL SC PRN ×3 (09:22→17:47)
[2022-05-20] MEDS: HYDROcodone/Acetaminophen 5/325 mg Tablet PO PRN ×2 (11:36→20:12)
[2022-05-20] MEDS ORDERED: HumaLOG 300 UNITS/3 ML VIAL SC SCH (12:45)
[2022-05-20] MEDS: Loperamide HCl 2 MG CAP PO PRN (14:46)
[2022-05-20] MEDS: cefTRIAXone\\ROCEPHIN 2 GM in Sodium Chloride 0.9% 100 ML IVPB SCH (16:35)
[2022-05-20] MEDS: Lantus 1000 UNITS/10 ML VIAL SC SCH (20:13)
[2022-05-21] MEDS: metFORMIN XR 500 MG TAB PO SCH ×2 (08:51→16:31)
[2022-05-21] MEDS: Gabapentin 300 MG CAP PO SCH ×2 (08:52→20:36)
[2022-05-21] MEDS: Saccharomyces boulardii 250 MG CAP PO SCH (08:52)
[2022-05-21] MEDS: Famotidine 20 MG TAB PO SCH ×2 (08:52→20:43)
[2022-05-21] MEDS: HumaLOG 300 UNITS/3 ML VIAL SC PRN ×3 (08:54→18:30)
[2022-05-21] MEDS: Nicotine 14 MG PATCH TOP SCH (08:59)
[2022-05-21] MEDS: HYDROcodone/Acetaminophen 5/325 mg Tablet PO PRN ×3 (09:01→21:36)
[2022-05-21] MEDS: Enoxaparin Sodium 40 MG/0.4 ML SYRINGE SC SCH (10:16)
[2022-05-21] MEDS: Loperamide HCl 2 MG CAP PO PRN ×2 (12:37→19:49)
[2022-05-21] MEDS: cefTRIAXone\\ROCEPHIN 2 GM in Sodium Chloride 0.9% 100 ML IVPB SCH (15:42)
[2022-05-21] MEDS: Lantus 1000 UNITS/10 ML VIAL SC SCH (20:56)
[2022-05-21] MEDS: Diphenoxylate HCl/Atropine Tablet PO PRN (21:01)
[2022-05-22] MEDS: Nicotine 14 MG PATCH TOP SCH (09:25)
[2022-05-22] MEDS: Enoxaparin Sodium 40 MG/0.4 ML SYRINGE SC SCH (09:25)
[2022-05-22] MEDS: Saccharomyces boulardii 250 MG CAP PO SCH (09:26)
[2022-05-22] MEDS: Gabapentin 300 MG CAP PO SCH ×2 (09:27→20:11)
[2022-05-22] MEDS: Famotidine 20 MG TAB PO SCH ×2 (09:28→20:12)
[2022-05-22] MEDS: metFORMIN XR 500 MG TAB PO SCH ×2 (09:28→16:59)
[2022-05-22] MEDS: HYDROcodone/Acetaminophen 5/325 mg Tablet PO PRN ×2 (11:00→20:17)
[2022-05-22] MEDS: HumaLOG 300 UNITS/3 ML VIAL SC PRN ×2 (12:18→17:01)
[2022-05-22] MEDS ORDERED: cefTRIAXone\\ROCEPHIN 2 GM in Sodium Chloride 0.9% 100 ML IVPB SCH (17:00)
[2022-05-22] MEDS: Lantus 1000 UNITS/10 ML VIAL SC SCH (20:19)
[2022-05-23] MEDS: HumaLOG 300 UNITS/3 ML VIAL SC PRN (08:12)
[2022-05-23] MEDS: Enoxaparin Sodium 40 MG/0.4 ML SYRINGE SC SCH (08:12)
[2022-05-23] MEDS: Saccharomyces boulardii 250 MG CAP PO SCH (08:13)
[2022-05-23] MEDS: Famotidine 20 MG TAB PO SCH ×2 (08:13→20:02)
[2022-05-23] MEDS: Gabapentin 300 MG CAP PO SCH ×2 (08:13→20:00)
[2022-05-23] MEDS: Nicotine 14 MG PATCH TOP SCH (08:13)
[2022-05-23] MEDS: metFORMIN XR 500 MG TAB PO SCH ×2 (08:13→16:56)
[2022-05-23] MEDS ORDERED: Dextrose 50% Abboject 50 ML SYRINGE SLOW IVP PRN (12:54)
[2022-05-23] MEDS ORDERED: Dextrose 5% in Water 1,000 ML IV PRN (12:54)
[2022-05-23] MEDS: Loperamide HCl 2 MG CAP PO PRN (13:53)
[2022-05-23] MEDS: Insulin Regular 300 UNITS/3 ML VIAL SC PRN ×3 (13:53→20:02)
[2022-05-23] MEDS: HYDROcodone/Acetaminophen 5/325 mg Tablet PO PRN (16:55)
[2022-05-23] MEDS: cefTRIAXone\\ROCEPHIN 2 GM in Sodium Chloride 0.9% 100 ML IVPB SCH (16:56)
[2022-05-23] MEDS: Lantus 1000 UNITS/10 ML VIAL SC SCH (20:12)
[2022-05-23 22:36] LABS: Routine O & P Final report (.)
[2022-05-24] MEDS: HYDROcodone/Acetaminophen 5/325 mg Tablet PO PRN ×2 (03:47→17:46)
[2022-05-24] MEDS: Loperamide HCl 2 MG CAP PO PRN (03:52)
[2022-05-24] MEDS: Saccharomyces boulardii 250 MG CAP PO SCH (09:56)
[2022-05-24] MEDS: Gabapentin 300 MG CAP PO SCH ×2 (09:56→20:32)
[2022-05-24] MEDS: metFORMIN XR 500 MG TAB PO SCH ×2 (09:56→17:44)
[2022-05-24] MEDS: Enoxaparin Sodium 40 MG/0.4 ML SYRINGE SC SCH (09:56)
[2022-05-24] MEDS: Nicotine 14 MG PATCH TOP SCH (09:57)
[2022-05-24] MEDS: Famotidine 20 MG TAB PO SCH ×2 (09:57→20:34)
[2022-05-24] MEDS: Insulin Regular 300 UNITS/3 ML VIAL SC PRN ×4 (10:01→20:34)
[2022-05-24] MEDS: cefTRIAXone\\ROCEPHIN 2 GM in Sodium Chloride 0.9% 100 ML IVPB SCH (16:05)
[2022-05-24] MEDS: Lantus 1000 UNITS/10 ML VIAL SC SCH (20:35)
[2022-05-24] MEDS: Diphenoxylate HCl/Atropine Tablet PO PRN (20:40)
[2022-05-25] MEDS: HYDROcodone/Acetaminophen 5/325 mg Tablet PO PRN ×3 (08:17→21:24)
[2022-05-25] MEDS: Enoxaparin Sodium 40 MG/0.4 ML SYRINGE SC SCH (08:19)
[2022-05-25] MEDS: Nicotine 14 MG PATCH TOP SCH ×2 (08:19→09:27)
[2022-05-25] MEDS: Gabapentin 300 MG CAP PO SCH ×2 (09:28→21:23)
[2022-05-25] MEDS: metFORMIN XR 500 MG TAB PO SCH ×2 (09:29→17:19)
[2022-05-25] MEDS: Famotidine 20 MG TAB PO SCH ×2 (09:29→21:25)
[2022-05-25] MEDS: Saccharomyces boulardii 250 MG CAP PO SCH (09:29)
[2022-05-25] MEDS: Insulin Regular 300 UNITS/3 ML VIAL SC PRN ×3 (09:34→21:25)
[2022-05-25] MEDS: cefTRIAXone\\ROCEPHIN 2 GM in Sodium Chloride 0.9% 100 ML IVPB SCH (16:08)
[2022-05-25] MEDS: Loperamide HCl 2 MG CAP PO PRN (18:42)
[2022-05-25] MEDS: Diphenoxylate HCl/Atropine Tablet PO PRN (21:23)
[2022-05-25] MEDS: Lantus 1000 UNITS/10 ML VIAL SC SCH (21:25)
[2022-05-26 05:11] LABS: Hemoglobin 9.8 g/dL (14.0-18.0); Platelet Count 430 10x3/uL (130-400)
[2022-05-26 05:16] LABS: Anion Gap 12 mmol/L (10-20); BUN (Urea Nitrogen) 27 mg/dL (8.9-20.6); Calc. Creatinine Clearance 99 mL/min (70-130); Calcium 9.7 mg/dL (7.8-10.44); Carbon Dioxide 27 mmol/L (22-29); Chloride 102 mmol/L (98-107); Estimated GFR 124; Glucose 100 mg/dL (70-105); Potassium 3.9 mmol/L (3.5-5.1); Sodium 137 mmol/L (136-145)
[2022-05-26] MEDS: Nicotine 14 MG PATCH TOP SCH (08:39)
[2022-05-26] MEDS: Gabapentin 300 MG CAP PO SCH ×2 (08:40→20:17)
[2022-05-26] MEDS: HYDROcodone/Acetaminophen 5/325 mg Tablet PO PRN ×2 (08:42→20:16)
[2022-05-26] MEDS: Saccharomyces boulardii 250 MG CAP PO SCH (08:43)
[2022-05-26] MEDS: metFORMIN XR 500 MG TAB PO SCH ×2 (08:44→15:34)
[2022-05-26] MEDS: Enoxaparin Sodium 40 MG/0.4 ML SYRINGE SC SCH (08:44)
[2022-05-26] MEDS: Famotidine 20 MG TAB PO SCH ×2 (08:44→20:18)
[2022-05-26] MEDS: Insulin Regular 300 UNITS/3 ML VIAL SC PRN (13:24)
[2022-05-26] MEDS: cefTRIAXone\\ROCEPHIN 2 GM in Sodium Chloride 0.9% 100 ML IVPB SCH (15:34)
[2022-05-26] MEDS: Lantus 1000 UNITS/10 ML VIAL SC SCH (20:16)
[2022-05-26] MEDS: Loperamide HCl 2 MG CAP PO PRN (20:16)
[2022-05-27] MEDS: Enoxaparin Sodium 40 MG/0.4 ML SYRINGE SC SCH (09:35)
[2022-05-27] MEDS: metFORMIN XR 500 MG TAB PO SCH ×2 (09:36→17:06)
[2022-05-27] MEDS: Gabapentin 300 MG CAP PO SCH ×2 (09:36→20:57)
[2022-05-27] MEDS: Famotidine 20 MG TAB PO SCH ×2 (09:37→20:58)
[2022-05-27] MEDS: Saccharomyces boulardii 250 MG CAP PO SCH (09:37)
[2022-05-27] MEDS: Loperamide HCl 2 MG CAP PO PRN ×2 (09:41→20:57)
[2022-05-27] MEDS: Insulin Regular 300 UNITS/3 ML VIAL SC PRN ×3 (09:42→20:56)
[2022-05-27] MEDS: cefTRIAXone\\ROCEPHIN 2 GM in Sodium Chloride 0.9% 100 ML IVPB SCH (15:59)
[2022-05-27] MEDS: Diphenoxylate HCl/Atropine Tablet PO PRN (17:09)
[2022-05-27] MEDS: Lantus 1000 UNITS/10 ML VIAL SC SCH (20:56)
[2022-05-27] MEDS: HYDROcodone/Acetaminophen 5/325 mg Tablet PO PRN (21:06)
[2022-05-28] MEDS: HYDROcodone/Acetaminophen 5/325 mg Tablet PO PRN ×2 (08:59→20:35)
[2022-05-28] MEDS: Enoxaparin Sodium 40 MG/0.4 ML SYRINGE SC SCH (09:00)
[2022-05-28] MEDS: Famotidine 20 MG TAB PO SCH ×2 (09:00→20:33)
[2022-05-28] MEDS: Nicotine 14 MG PATCH TOP SCH (09:00)
[2022-05-28] MEDS: Saccharomyces boulardii 250 MG CAP PO SCH (09:00)
[2022-05-28] MEDS: Gabapentin 300 MG CAP PO SCH ×2 (09:01→20:33)
[2022-05-28] MEDS: metFORMIN XR 500 MG TAB PO SCH ×2 (09:01→17:10)
[2022-05-28] MEDS: Loperamide HCl 2 MG CAP PO PRN (09:04)
[2022-05-28] MEDS: Insulin Regular 300 UNITS/3 ML VIAL SC PRN ×3 (09:06→20:40)
[2022-05-28] MEDS: cefTRIAXone\\ROCEPHIN 2 GM in Sodium Chloride 0.9% 100 ML IVPB SCH (16:00)
[2022-05-28] MEDS: Diphenoxylate HCl/Atropine Tablet PO PRN (20:36)
[2022-05-28] MEDS: Lantus 1000 UNITS/10 ML VIAL SC SCH (20:39)
[2022-05-29] MEDS: Nicotine 14 MG PATCH TOP SCH (07:51)
[2022-05-29] MEDS: Enoxaparin Sodium 40 MG/0.4 ML SYRINGE SC SCH (07:51)
[2022-05-29] MEDS: Saccharomyces boulardii 250 MG CAP PO SCH (07:51)
[2022-05-29] MEDS: metFORMIN XR 500 MG TAB PO SCH ×2 (07:52→16:52)
[2022-05-29] MEDS: Gabapentin 300 MG CAP PO SCH ×2 (07:52→21:27)
[2022-05-29] MEDS: Insulin Regular 300 UNITS/3 ML VIAL SC PRN ×3 (07:53→16:52)
[2022-05-29] MEDS: Famotidine 20 MG TAB PO SCH ×2 (07:53→21:27)
[2022-05-29 09:24] LABS: ALT (SGPT) 36 U/L (8-55); AST (SGOT) 22 U/L (5-34); Albumin 3.3 g/dL (3.5-5.0); Alkaline Phosphatase 83 U/L (40-110); Anion Gap 14 mmol/L (10-20); BUN (Urea Nitrogen) 22 mg/dL (8.9-20.6); Bilirubin, Total 0.2 mg/dL (0.2-1.2); CRP (Inflammatory) Less than 0.50 mg/dL (= or < 0.5); Calc. Creatinine Clearance 75 mL/min (70-130); Calcium 9.3 mg/dL (7.8-10.44); Carbon Dioxide 26 mmol/L (22-29); Chloride 98 mmol/L (98-107); Estimated GFR 113; Globulin 4.2 g/dL (2.4-3.5); Glucose 386 mg/dL (70-105); Potassium 4.2 mmol/L (3.5-5.1); Protein, Total 7.5 g/dL (6.0-8.3); Sodium 134 mmol/L (136-145)
[2022-05-29 09:35] LABS: Hemoglobin 10.1 g/dL (14.0-18.0); Mean Corpuscular HGB CONC 32.5 g/dL (32.0-36.0); Mean Corpuscular Hemoglobin 30.9 pg (27.0-31.0); Mean Corpuscular Volume 94.9 fl (78.0-98.0); Platelet Count 404 10x3/uL (130-400); RBC Distribution Width 14.2 % (11.5-14.5); Red Blood Cell (RBC) Count 3.28 mill/uL (4.70-6.10); White Blood Cell (WBC) Count 8.2 10x3/uL (4.8-10.8)
[2022-05-29 10:01] LABS: Eosinophils 9 % (0-10); Lymphocytes 25 % (21-51); MDiff Complete? YES; Monocytes 6 % (0-10); Neutrophil 60 % (42-75); Platelet Morphology Comment Appears Increased; RBC Morphology Normal
[2022-05-29] MEDS: cefTRIAXone\\ROCEPHIN 2 GM in Sodium Chloride 0.9% 100 ML IVPB SCH (15:14)
[2022-05-29] MEDS: Loperamide HCl 2 MG CAP PO PRN ×2 (15:25→21:26)
[2022-05-29] MEDS: HYDROcodone/Acetaminophen 5/325 mg Tablet PO PRN (21:27)
[2022-05-29] MEDS: Lantus 1000 UNITS/10 ML VIAL SC SCH (21:29)
[2022-05-30] MEDS: Insulin Regular 300 UNITS/3 ML VIAL SC PRN ×3 (08:06→17:09)
[2022-05-30] MEDS: metFORMIN XR 500 MG TAB PO SCH ×2 (08:06→16:57)
[2022-05-30] MEDS: Famotidine 20 MG TAB PO SCH ×2 (09:05→20:22)
[2022-05-30] MEDS: Gabapentin 300 MG CAP PO SCH ×2 (09:05→20:22)
[2022-05-30] MEDS: Saccharomyces boulardii 250 MG CAP PO SCH (09:06)
[2022-05-30] MEDS: Nicotine 14 MG PATCH TOP SCH (09:06)
[2022-05-30] MEDS: Enoxaparin Sodium 40 MG/0.4 ML SYRINGE SC SCH (09:06)
[2022-05-30] MEDS: cefTRIAXone\\ROCEPHIN 2 GM in Sodium Chloride 0.9% 100 ML IVPB SCH (16:49)
[2022-05-30] MEDS: Loperamide HCl 2 MG CAP PO PRN (20:21)
[2022-05-30] MEDS: Lantus 1000 UNITS/10 ML VIAL SC SCH (20:21)
[2022-05-31] MEDS: HYDROcodone/Acetaminophen 5/325 mg Tablet PO PRN ×2 (07:37→21:08)
[2022-05-31] MEDS: Enoxaparin Sodium 40 MG/0.4 ML SYRINGE SC SCH (09:15)
[2022-05-31] MEDS: Gabapentin 300 MG CAP PO SCH ×2 (09:15→21:10)
[2022-05-31] MEDS: metFORMIN XR 500 MG TAB PO SCH ×2 (09:20→17:19)
[2022-05-31] MEDS: Nicotine 14 MG PATCH TOP SCH (09:20)
[2022-05-31] MEDS: Saccharomyces boulardii 250 MG CAP PO SCH (09:21)
[2022-05-31] MEDS: Famotidine 20 MG TAB PO SCH ×2 (09:27→21:11)
[2022-05-31] MEDS: Insulin Regular 300 UNITS/3 ML VIAL SC PRN ×2 (09:36→13:05)
[2022-05-31] MEDS: cefTRIAXone\\ROCEPHIN 2 GM in Sodium Chloride 0.9% 100 ML IVPB SCH (17:19)
[2022-05-31] MEDS: Lantus 1000 UNITS/10 ML VIAL SC SCH (21:08)
[2022-06-01] MEDS: Insulin Regular 300 UNITS/3 ML VIAL SC PRN ×2 (08:02→17:16)
[2022-06-01] MEDS: metFORMIN XR 500 MG TAB PO SCH ×2 (08:03→17:15)
[2022-06-01] MEDS: Saccharomyces boulardii 250 MG CAP PO SCH (08:03)
[2022-06-01] MEDS: Famotidine 20 MG TAB PO SCH ×2 (08:03→20:57)
[2022-06-01] MEDS: Gabapentin 300 MG CAP PO SCH ×2 (08:04→20:57)
[2022-06-01] MEDS: Nicotine 14 MG PATCH TOP SCH (08:06)
[2022-06-01] MEDS: Enoxaparin Sodium 40 MG/0.4 ML SYRINGE SC SCH (08:06)
[2022-06-01] MEDS: Loperamide HCl 2 MG CAP PO PRN (16:07)
[2022-06-01] MEDS: cefTRIAXone\\ROCEPHIN 2 GM in Sodium Chloride 0.9% 100 ML IVPB SCH (17:15)
[2022-06-01] MEDS: HYDROcodone/Acetaminophen 5/325 mg Tablet PO PRN (17:24)
[2022-06-01] MEDS ORDERED: Insulin Regular 300 UNITS/3 ML VIAL SC SCH (19:30)
[2022-06-01] MEDS: Lantus 1000 UNITS/10 ML VIAL SC SCH (20:59)
[2022-06-02] MEDS: Saccharomyces boulardii 250 MG CAP PO SCH (09:08)
[2022-06-02] MEDS: metFORMIN XR 500 MG TAB PO SCH ×2 (09:08→17:06)
[2022-06-02] MEDS: Enoxaparin Sodium 40 MG/0.4 ML SYRINGE SC SCH (09:08)
[2022-06-02] MEDS: Famotidine 20 MG TAB PO SCH ×2 (09:09→21:15)
[2022-06-02] MEDS: Gabapentin 300 MG CAP PO SCH ×2 (09:09→21:16)
[2022-06-02] MEDS: HYDROcodone/Acetaminophen 5/325 mg Tablet PO PRN ×2 (09:11→20:22)
[2022-06-02] MEDS: Nicotine 14 MG PATCH TOP SCH (09:13)
[2022-06-02] MEDS: Insulin Regular 300 UNITS/3 ML VIAL SC PRN ×2 (09:14→12:42)
[2022-06-02] MEDS: Loperamide HCl 2 MG CAP PO PRN ×2 (14:46→16:59)
[2022-06-02] MEDS: cefTRIAXone\\ROCEPHIN 2 GM in Sodium Chloride 0.9% 100 ML IVPB SCH (16:58)
[2022-06-02] MEDS: Lantus 1000 UNITS/10 ML VIAL SC SCH (20:16)
[2022-06-02] MEDS: Diphenoxylate HCl/Atropine Tablet PO PRN (20:20)
[2022-06-03] MEDS: metFORMIN XR 500 MG TAB PO SCH ×2 (08:28→17:23)
[2022-06-03] MEDS: Saccharomyces boulardii 250 MG CAP PO SCH (08:28)
[2022-06-03] MEDS: Famotidine 20 MG TAB PO SCH ×2 (08:28→20:25)
[2022-06-03] MEDS: Nicotine 14 MG PATCH TOP SCH (08:28)
[2022-06-03] MEDS: Loperamide HCl 2 MG CAP PO PRN ×3 (08:28→20:25)
[2022-06-03] MEDS: Gabapentin 300 MG CAP PO SCH ×2 (08:29→20:24)
[2022-06-03] MEDS: Insulin Regular 300 UNITS/3 ML VIAL SC PRN ×2 (08:29→13:14)
[2022-06-03] MEDS: Enoxaparin Sodium 40 MG/0.4 ML SYRINGE SC SCH (08:29)
[2022-06-03] MEDS: Diphenoxylate HCl/Atropine Tablet PO PRN (09:16)
[2022-06-03] MEDS: cefTRIAXone\\ROCEPHIN 2 GM in Sodium Chloride 0.9% 100 ML IVPB SCH (16:34)
[2022-06-03] MEDS: HYDROcodone/Acetaminophen 5/325 mg Tablet PO PRN (17:25)
[2022-06-03] MEDS: Lantus 1000 UNITS/10 ML VIAL SC SCH (20:25)
[2022-06-04] MEDS: Insulin Regular 300 UNITS/3 ML VIAL SC PRN ×3 (08:27→20:09)
[2022-06-04] MEDS: Gabapentin 300 MG CAP PO SCH ×2 (08:28→20:08)
[2022-06-04] MEDS: Famotidine 20 MG TAB PO SCH ×2 (08:28→20:07)
[2022-06-04] MEDS: Nicotine 14 MG PATCH TOP SCH (08:28)
[2022-06-04] MEDS: Enoxaparin Sodium 40 MG/0.4 ML SYRINGE SC SCH (08:29)
[2022-06-04] MEDS: Saccharomyces boulardii 250 MG CAP PO SCH (08:29)
[2022-06-04] MEDS: metFORMIN XR 500 MG TAB PO SCH ×2 (08:29→16:57)
[2022-06-04] MEDS: cefTRIAXone\\ROCEPHIN 2 GM in Sodium Chloride 0.9% 100 ML IVPB SCH (16:09)
[2022-06-04] MEDS: Acetaminophen 325 MG TAB PO PRN (16:15)
[2022-06-04] MEDS: Loperamide HCl 2 MG CAP PO PRN (16:16)
[2022-06-04] MEDS: HYDROcodone/Acetaminophen 5/325 mg Tablet PO PRN (20:07)
[2022-06-04] MEDS: Lantus 1000 UNITS/10 ML VIAL SC SCH (20:09)
[2022-06-05] MEDS: Diphenoxylate HCl/Atropine Tablet PO PRN (01:33)
[2022-06-05] MEDS: HYDROcodone/Acetaminophen 5/325 mg Tablet PO PRN ×2 (06:08→17:06)
[2022-06-05] MEDS: Insulin Regular 300 UNITS/3 ML VIAL SC PRN ×3 (08:39→17:07)
[2022-06-05] MEDS: Gabapentin 300 MG CAP PO SCH ×2 (08:41→20:17)
[2022-06-05] MEDS: metFORMIN XR 500 MG TAB PO SCH ×2 (08:42→17:06)
[2022-06-05] MEDS: Enoxaparin Sodium 40 MG/0.4 ML SYRINGE SC SCH ×2 (08:42→08:45)
[2022-06-05] MEDS: Nicotine 14 MG PATCH TOP SCH (08:42)
[2022-06-05] MEDS: Famotidine 20 MG TAB PO SCH ×2 (08:42→20:18)
[2022-06-05] MEDS: Saccharomyces boulardii 250 MG CAP PO SCH (08:42)
[2022-06-05] MEDS: Loperamide HCl 2 MG CAP PO PRN (14:57)
[2022-06-05] MEDS: cefTRIAXone\\ROCEPHIN 2 GM in Sodium Chloride 0.9% 100 ML IVPB SCH (16:34)
[2022-06-05 18:27] LABS: #Basophils 0.2 thou/uL (0.0-0.2); #Eosinphils 0.5 thou/uL (0.0-0.7); #Lymphocytes 2.6 thou/uL (1.20-3.40); #Monocytes 0.6 thou/uL (0.11-0.59); %Basophils 2.1 % (0.0-1.0); %Eosinophils 6.7 % (0.0-10.0); %Lymphocytes 33.1 % (21.0-51.0); %Monocytes 7.5 % (0.0-10.0); %Neutrophils 50.7 % (42.0-75.0); Hemoglobin 10.3 g/dL (14.0-18.0); Mean Corpuscular Hemoglobin 30.3 pg (27.0-31.0); Mean Corpuscular Volume 94.7 fl (78.0-98.0); Mean Platelet Volume 7.2 fL (7.4-10.4); Platelet Count 339 10x3/uL (130-400); RBC Distribution Width 13.8 % (11.5-14.5); Red Blood Cell (RBC) Count 3.41 mill/uL (4.70-6.10); White Blood Cell (WBC) Count 7.9 10x3/uL (4.8-10.8)
[2022-06-05 18:45] LABS: ALT (SGPT) 30 U/L (8-55); AST (SGOT) 17 U/L (5-34); Albumin 3.4 g/dL (3.5-5.0); Alkaline Phosphatase 64 U/L (40-110); Anion Gap 13 mmol/L (10-20); BUN (Urea Nitrogen) 31 mg/dL (8.9-20.6); Bilirubin, Total Less than 0.2 mg/dL (0.2-1.2); Calc. Creatinine Clearance 84 mL/min (70-130); Calcium 9.4 mg/dL (7.8-10.44); Carbon Dioxide 29 mmol/L (22-29); Chloride 99 mmol/L (98-107); Estimated GFR 111; Globulin 3.8 g/dL (2.4-3.5); Glucose 220 mg/dL (70-105); Potassium 4.5 mmol/L (3.5-5.1); Protein, Total 7.2 g/dL (6.0-8.3); Sodium 136 mmol/L (136-145)
[2022-06-05] MEDS: Lantus 1000 UNITS/10 ML VIAL SC SCH (20:18)
[2022-06-06] MEDS: Saccharomyces boulardii 250 MG CAP PO SCH (08:21)
[2022-06-06] MEDS: Gabapentin 300 MG CAP PO SCH ×2 (08:21→20:10)
[2022-06-06] MEDS: metFORMIN XR 500 MG TAB PO SCH ×2 (08:21→17:14)
[2022-06-06] MEDS: Famotidine 20 MG TAB PO SCH ×2 (08:22→20:10)
[2022-06-06] MEDS: Insulin Regular 300 UNITS/3 ML VIAL SC PRN ×3 (08:23→17:14)
[2022-06-06] MEDS: Nicotine 14 MG PATCH TOP SCH (08:24)
[2022-06-06] MEDS: Enoxaparin Sodium 40 MG/0.4 ML SYRINGE SC SCH (08:24)
[2022-06-06] MEDS: Loperamide HCl 2 MG CAP PO PRN ×2 (08:32→20:10)
[2022-06-06] MEDS: Diphenoxylate HCl/Atropine Tablet PO PRN (14:14)
[2022-06-06] MEDS: HYDROcodone/Acetaminophen 5/325 mg Tablet PO PRN ×2 (14:14→20:17)
[2022-06-06] MEDS: cefTRIAXone\\ROCEPHIN 2 GM in Sodium Chloride 0.9% 100 ML IVPB SCH (16:06)
[2022-06-06] MEDS: Lantus 1000 UNITS/10 ML VIAL SC SCH (21:00)
[2022-06-07] MEDS: Insulin Regular 300 UNITS/3 ML VIAL SC PRN ×4 (04:55→20:36)
[2022-06-07] MEDS: metFORMIN XR 500 MG TAB PO SCH ×2 (09:03→17:03)
[2022-06-07] MEDS: Gabapentin 300 MG CAP PO SCH ×2 (09:03→20:32)
[2022-06-07] MEDS: Nicotine 14 MG PATCH TOP SCH (09:03)
[2022-06-07] MEDS: Famotidine 20 MG TAB PO SCH ×2 (09:04→20:33)
[2022-06-07] MEDS: Saccharomyces boulardii 250 MG CAP PO SCH (09:04)
[2022-06-07] MEDS: Enoxaparin Sodium 40 MG/0.4 ML SYRINGE SC SCH (09:04)
[2022-06-07] MEDS: HYDROcodone/Acetaminophen 5/325 mg Tablet PO PRN (12:11)
[2022-06-07] MEDS: cefTRIAXone\\ROCEPHIN 2 GM in Sodium Chloride 0.9% 100 ML IVPB SCH (16:49)
[2022-06-07] MEDS: Lantus 1000 UNITS/10 ML VIAL SC SCH (20:33)
[2022-06-08] MEDS: Enoxaparin Sodium 40 MG/0.4 ML SYRINGE SC SCH (08:37)
[2022-06-08] MEDS: Famotidine 20 MG TAB PO SCH ×2 (08:37→20:23)
[2022-06-08] MEDS: Gabapentin 300 MG CAP PO SCH ×2 (08:38→20:23)
[2022-06-08] MEDS: metFORMIN XR 500 MG TAB PO SCH ×2 (08:38→16:43)
[2022-06-08] MEDS: Saccharomyces boulardii 250 MG CAP PO SCH (08:38)
[2022-06-08] MEDS: Insulin Regular 300 UNITS/3 ML VIAL SC PRN ×4 (08:39→20:37)
[2022-06-08] MEDS: Nicotine 14 MG PATCH TOP SCH (08:40)
[2022-06-08] MEDS: cefTRIAXone\\ROCEPHIN 2 GM in Sodium Chloride 0.9% 100 ML IVPB SCH (16:32)
[2022-06-08] MEDS: HYDROcodone/Acetaminophen 5/325 mg Tablet PO PRN (20:22)
[2022-06-08] MEDS: Diphenoxylate HCl/Atropine Tablet PO PRN (20:22)
[2022-06-08] MEDS: Lantus 1000 UNITS/10 ML VIAL SC SCH (20:23)
[2022-06-09] MEDS: Loperamide HCl 2 MG CAP PO PRN ×2 (03:21→12:13)
[2022-06-09] MEDS: metFORMIN XR 500 MG TAB PO SCH ×2 (08:45→17:02)
[2022-06-09] MEDS: Gabapentin 300 MG CAP PO SCH ×2 (08:46→21:23)
[2022-06-09] MEDS: Famotidine 20 MG TAB PO SCH ×2 (08:46→21:25)
[2022-06-09] MEDS: Saccharomyces boulardii 250 MG CAP PO SCH (08:46)
[2022-06-09] MEDS: Nicotine 14 MG PATCH TOP SCH (08:49)
[2022-06-09] MEDS: Enoxaparin Sodium 40 MG/0.4 ML SYRINGE SC SCH (08:49)
[2022-06-09] MEDS: Insulin Regular 300 UNITS/3 ML VIAL SC PRN ×3 (09:30→21:22)
[2022-06-09] MEDS: cefTRIAXone\\ROCEPHIN 2 GM in Sodium Chloride 0.9% 100 ML IVPB SCH (17:02)
[2022-06-09] MEDS: Diphenoxylate HCl/Atropine Tablet PO PRN (19:30)
[2022-06-09] MEDS: Lantus 1000 UNITS/10 ML VIAL SC SCH (21:23)
[2022-06-09] MEDS: HYDROcodone/Acetaminophen 5/325 mg Tablet PO PRN (21:27)
[2022-06-10] MEDS: Gabapentin 300 MG CAP PO SCH ×2 (08:50→20:40)
[2022-06-10] MEDS: Saccharomyces boulardii 250 MG CAP PO SCH (08:51)
[2022-06-10] MEDS: HYDROcodone/Acetaminophen 5/325 mg Tablet PO PRN ×2 (08:51→19:54)
[2022-06-10] MEDS: Famotidine 20 MG TAB PO SCH ×2 (08:52→20:41)
[2022-06-10] MEDS: metFORMIN XR 500 MG TAB PO SCH ×2 (08:52→17:00)
[2022-06-10] MEDS: Enoxaparin Sodium 40 MG/0.4 ML SYRINGE SC SCH (08:53)
[2022-06-10] MEDS: Nicotine 14 MG PATCH TOP SCH (08:53)
[2022-06-10] MEDS: Insulin Regular 300 UNITS/3 ML VIAL SC PRN ×2 (08:54→12:07)
[2022-06-10] MEDS: Loperamide HCl 2 MG CAP PO PRN ×2 (12:12→20:41)
[2022-06-10] MEDS: cefTRIAXone\\ROCEPHIN 2 GM in Sodium Chloride 0.9% 100 ML IVPB SCH (17:00)
[2022-06-10] MEDS: Lantus 1000 UNITS/10 ML VIAL SC SCH (20:39)
[2022-06-11] MEDS: Acetaminophen 325 MG TAB PO PRN (08:59)
[2022-06-11] MEDS: Gabapentin 300 MG CAP PO SCH ×2 (09:00→20:09)
[2022-06-11] MEDS: Saccharomyces boulardii 250 MG CAP PO SCH (09:01)
[2022-06-11] MEDS: Famotidine 20 MG TAB PO SCH ×2 (09:01→20:03)
[2022-06-11] MEDS: metFORMIN XR 500 MG TAB PO SCH ×2 (09:01→17:08)
[2022-06-11] MEDS: Insulin Regular 300 UNITS/3 ML VIAL SC PRN ×3 (09:01→20:10)
[2022-06-11] MEDS: Nicotine 14 MG PATCH TOP SCH (09:02)
[2022-06-11] MEDS: Enoxaparin Sodium 40 MG/0.4 ML SYRINGE SC SCH (09:03)
[2022-06-11 09:22] LABS: Anion Gap 13 mmol/L (10-20); BUN (Urea Nitrogen) 27 mg/dL (8.9-20.6); Calc. Creatinine Clearance 103 mL/min (70-130); Calcium 9.4 mg/dL (7.8-10.44); Carbon Dioxide 27 mmol/L (22-29); Chloride 99 mmol/L (98-107); Estimated GFR 116; Glucose 306 mg/dL (70-105); Potassium 4.6 mmol/L (3.5-5.1); Sodium 134 mmol/L (136-145)
[2022-06-11] MEDS: Loperamide HCl 2 MG CAP PO PRN ×2 (12:27→17:15)
[2022-06-11] MEDS: cefTRIAXone\\ROCEPHIN 2 GM in Sodium Chloride 0.9% 100 ML IVPB SCH (17:08)
[2022-06-11] MEDS: Diphenoxylate HCl/Atropine Tablet PO PRN (20:03)
[2022-06-11] MEDS: HYDROcodone/Acetaminophen 5/325 mg Tablet PO PRN (20:08)
[2022-06-11] MEDS: Lantus 1000 UNITS/10 ML VIAL SC SCH (20:11)
[2022-06-12] MEDS: Loperamide HCl 2 MG CAP PO PRN ×2 (05:16→20:35)
[2022-06-12] MEDS: HYDROcodone/Acetaminophen 5/325 mg Tablet PO PRN ×2 (05:16→20:34)
[2022-06-12 05:46] LABS: #Basophils 0.1 thou/uL (0.0-0.2); #Eosinphils 0.5 thou/uL (0.0-0.7); #Lymphocytes 2.6 thou/uL (1.20-3.40); #Monocytes 0.6 thou/uL (0.11-0.59); #Neutrophils 3.2 thou/uL (1.40-6.50); %Basophils 1.6 % (0.0-1.0); %Eosinophils 6.9 % (0.0-10.0); %Lymphocytes 36.9 % (21.0-51.0); %Monocytes 8.9 % (0.0-10.0); %Neutrophils 45.6 % (42.0-75.0); Hemoglobin 11.4 g/dL (14.0-18.0); Mean Corpuscular HGB CONC 32.9 g/dL (32.0-36.0); Mean Corpuscular Hemoglobin 30.9 pg (27.0-31.0); Mean Corpuscular Volume 93.9 fl (78.0-98.0); Mean Platelet Volume 7.4 fL (7.4-10.4); Platelet Count 292 10x3/uL (130-400); RBC Distribution Width 13.5 % (11.5-14.5); White Blood Cell (WBC) Count 6.9 10x3/uL (4.8-10.8)
[2022-06-12] MEDS: Insulin Regular 300 UNITS/3 ML VIAL SC PRN ×2 (07:55→20:39)
[2022-06-12] MEDS: Famotidine 20 MG TAB PO SCH ×2 (07:57→20:36)
[2022-06-12] MEDS: Saccharomyces boulardii 250 MG CAP PO SCH (07:58)
[2022-06-12] MEDS: metFORMIN XR 500 MG TAB PO SCH ×2 (07:58→17:22)
[2022-06-12] MEDS: Gabapentin 300 MG CAP PO SCH ×2 (07:58→20:35)
[2022-06-12] MEDS: Nicotine 14 MG PATCH TOP SCH (07:59)
[2022-06-12] MEDS: Enoxaparin Sodium 40 MG/0.4 ML SYRINGE SC SCH (07:59)
[2022-06-12] MEDS ORDERED: Diphenoxylate HCl/Atropine Tablet ONE (09:03)
[2022-06-12] MEDS: Diphenoxylate HCl/Atropine Tablet PO PRN (09:06)
[2022-06-12] MEDS: cefTRIAXone\\ROCEPHIN 2 GM in Sodium Chloride 0.9% 100 ML IVPB SCH (17:22)
[2022-06-12] MEDS: Lantus 1000 UNITS/10 ML VIAL SC SCH (20:36)
[2022-06-13] MEDS: Insulin Regular 300 UNITS/3 ML VIAL SC PRN ×2 (08:17→16:34)
[2022-06-13] MEDS: Famotidine 20 MG TAB PO SCH ×2 (08:18→20:17)
[2022-06-13] MEDS: Saccharomyces boulardii 250 MG CAP PO SCH (08:18)
[2022-06-13] MEDS: Enoxaparin Sodium 40 MG/0.4 ML SYRINGE SC SCH (08:19)
[2022-06-13] MEDS: Gabapentin 300 MG CAP PO SCH ×2 (08:19→20:16)
[2022-06-13] MEDS: metFORMIN XR 500 MG TAB PO SCH ×2 (08:19→16:27)
[2022-06-13] MEDS: Nicotine 14 MG PATCH TOP SCH (08:20)
[2022-06-13] MEDS: Loperamide HCl 2 MG CAP PO PRN (11:14)
[2022-06-13] MEDS: cefTRIAXone\\ROCEPHIN 2 GM in Sodium Chloride 0.9% 100 ML IVPB SCH (16:27)
[2022-06-13] MEDS: HYDROcodone/Acetaminophen 5/325 mg Tablet PO PRN (16:27)
[2022-06-13] MEDS: Lantus 1000 UNITS/10 ML VIAL SC SCH (20:16)
[2022-06-14] MEDS: HYDROcodone/Acetaminophen 5/325 mg Tablet PO PRN (05:14)
[2022-06-14] MEDS: Insulin Regular 300 UNITS/3 ML VIAL SC PRN ×4 (09:02→21:48)
[2022-06-14] MEDS: Gabapentin 300 MG CAP PO SCH ×2 (09:03→21:47)
[2022-06-14] MEDS: Saccharomyces boulardii 250 MG CAP PO SCH (09:03)
[2022-06-14] MEDS: metFORMIN XR 500 MG TAB PO SCH ×2 (09:03→17:03)
[2022-06-14] MEDS: Loperamide HCl 2 MG CAP PO PRN (09:07)
[2022-06-14] MEDS: Nicotine 14 MG PATCH TOP SCH (09:10)
[2022-06-14] MEDS: Enoxaparin Sodium 40 MG/0.4 ML SYRINGE SC SCH (09:11)
[2022-06-14] MEDS: Famotidine 20 MG TAB PO SCH ×2 (09:12→21:48)
[2022-06-14] MEDS ORDERED: Gabapentin 300 MG CAP PO SCH (14:15)
[2022-06-14] MEDS: cefTRIAXone\\ROCEPHIN 2 GM in Sodium Chloride 0.9% 100 ML IVPB SCH (16:58)
[2022-06-14] MEDS: Lantus 1000 UNITS/10 ML VIAL SC SCH (21:48)
[2022-06-15] MEDS: Insulin Regular 300 UNITS/3 ML VIAL SC PRN ×3 (08:45→20:12)
[2022-06-15] MEDS: metFORMIN XR 500 MG TAB PO SCH ×2 (08:47→16:46)
[2022-06-15] MEDS: Famotidine 20 MG TAB PO SCH ×2 (08:47→20:14)
[2022-06-15] MEDS: Gabapentin 300 MG CAP PO SCH ×2 (08:47→20:14)
[2022-06-15] MEDS: Nicotine 14 MG PATCH TOP SCH (08:48)
[2022-06-15] MEDS: Saccharomyces boulardii 250 MG CAP PO SCH (08:48)
[2022-06-15] MEDS: Loperamide HCl 2 MG CAP PO PRN ×2 (08:50→18:32)
[2022-06-15] MEDS: Enoxaparin Sodium 40 MG/0.4 ML SYRINGE SC SCH (08:52)
[2022-06-15] MEDS: cefTRIAXone\\ROCEPHIN 2 GM in Sodium Chloride 0.9% 100 ML IVPB SCH (16:39)
[2022-06-15] MEDS: HYDROcodone/Acetaminophen 5/325 mg Tablet PO PRN (20:13)
[2022-06-15] MEDS: Lantus 1000 UNITS/10 ML VIAL SC SCH (20:14)
[2022-06-16] MEDS: Gabapentin 300 MG CAP PO SCH ×2 (09:02→20:21)
[2022-06-16] MEDS: Famotidine 20 MG TAB PO SCH ×2 (09:03→20:22)
[2022-06-16] MEDS: metFORMIN XR 500 MG TAB PO SCH ×2 (09:03→16:39)
[2022-06-16] MEDS: Saccharomyces boulardii 250 MG CAP PO SCH (09:04)
[2022-06-16] MEDS: Enoxaparin Sodium 40 MG/0.4 ML SYRINGE SC SCH (09:06)
[2022-06-16] MEDS: Nicotine 14 MG PATCH TOP SCH (09:07)
[2022-06-16] MEDS: HYDROcodone/Acetaminophen 5/325 mg Tablet PO PRN (10:33)
[2022-06-16] MEDS: Insulin Regular 300 UNITS/3 ML VIAL SC PRN ×2 (12:20→20:22)
[2022-06-16] MEDS: Loperamide HCl 2 MG CAP PO PRN (12:25)
[2022-06-16] MEDS: cefTRIAXone\\ROCEPHIN 2 GM in Sodium Chloride 0.9% 100 ML IVPB SCH (16:37)
[2022-06-16] MEDS: Lantus 1000 UNITS/10 ML VIAL SC SCH (20:22)
[2022-06-17] MEDS: Famotidine 20 MG TAB PO SCH ×2 (08:07→20:53)
[2022-06-17] MEDS: Insulin Regular 300 UNITS/3 ML VIAL SC PRN ×3 (08:07→20:55)
[2022-06-17] MEDS: Gabapentin 300 MG CAP PO SCH ×2 (08:07→20:54)
[2022-06-17] MEDS: Saccharomyces boulardii 250 MG CAP PO SCH (08:07)
[2022-06-17] MEDS: metFORMIN XR 500 MG TAB PO SCH ×2 (08:07→16:53)
[2022-06-17] MEDS: Nicotine 14 MG PATCH TOP SCH (08:09)
[2022-06-17] MEDS: Enoxaparin Sodium 40 MG/0.4 ML SYRINGE SC SCH (08:09)
[2022-06-17] MEDS: cefTRIAXone\\ROCEPHIN 2 GM in Sodium Chloride 0.9% 100 ML IVPB SCH (16:53)
[2022-06-17] MEDS: HYDROcodone/Acetaminophen 5/325 mg Tablet PO PRN (16:58)
[2022-06-17] MEDS: Loperamide HCl 2 MG CAP PO PRN (20:54)
[2022-06-17] MEDS: Lantus 1000 UNITS/10 ML VIAL SC SCH (20:55)
[2022-06-18] MEDS: Loperamide HCl 2 MG CAP PO PRN (08:22)
[2022-06-18] MEDS: Gabapentin 300 MG CAP PO SCH ×2 (08:22→20:49)
[2022-06-18] MEDS: Famotidine 20 MG TAB PO SCH ×2 (08:22→20:49)
[2022-06-18] MEDS: Insulin Regular 300 UNITS/3 ML VIAL SC PRN ×4 (08:23→20:51)
[2022-06-18] MEDS: Enoxaparin Sodium 40 MG/0.4 ML SYRINGE SC SCH (08:23)
[2022-06-18] MEDS: metFORMIN XR 500 MG TAB PO SCH ×2 (08:23→17:03)
[2022-06-18] MEDS: Nicotine 14 MG PATCH TOP SCH (08:25)
[2022-06-18] MEDS: Saccharomyces boulardii 250 MG CAP PO SCH (08:26)
[2022-06-18] MEDS: cefTRIAXone\\ROCEPHIN 2 GM in Sodium Chloride 0.9% 100 ML IVPB SCH (17:03)
[2022-06-18] MEDS: HYDROcodone/Acetaminophen 5/325 mg Tablet PO PRN (20:49)
[2022-06-18] MEDS: Diphenoxylate HCl/Atropine Tablet PO PRN (20:50)
[2022-06-18] MEDS: Lantus 1000 UNITS/10 ML VIAL SC SCH (20:51)
[2022-06-19] MEDS: HYDROcodone/Acetaminophen 5/325 mg Tablet PO PRN ×2 (06:23→20:01)
[2022-06-19] MEDS: Loperamide HCl 2 MG CAP PO PRN ×2 (06:27→23:07)
[2022-06-19] MEDS: Gabapentin 300 MG CAP PO SCH ×2 (08:08→20:02)
[2022-06-19] MEDS: Insulin Regular 300 UNITS/3 ML VIAL SC PRN ×4 (08:08→20:07)
[2022-06-19] MEDS: Saccharomyces boulardii 250 MG CAP PO SCH (08:08)
[2022-06-19] MEDS: metFORMIN XR 500 MG TAB PO SCH ×2 (08:08→17:15)
[2022-06-19] MEDS: Famotidine 20 MG TAB PO SCH ×2 (08:08→20:03)
[2022-06-19] MEDS: Nicotine 14 MG PATCH TOP SCH (09:07)
[2022-06-19] MEDS: Enoxaparin Sodium 40 MG/0.4 ML SYRINGE SC SCH (09:07)
[2022-06-19 10:56] LABS: #Basophils 0.1 thou/uL (0.0-0.2); #Eosinphils 0.4 thou/uL (0.0-0.7); #Lymphocytes 2.7 thou/uL (1.20-3.40); #Monocytes 0.7 thou/uL (0.11-0.59); #Neutrophils 3.9 thou/uL (1.40-6.50); %Basophils 1.4 % (0.0-1.0); %Eosinophils 5.5 % (0.0-10.0); %Lymphocytes 34.7 % (21.0-51.0); %Monocytes 8.5 % (0.0-10.0); %Neutrophils 49.8 % (42.0-75.0); Hemoglobin 11.6 g/dL (14.0-18.0); Mean Corpuscular HGB CONC 33.3 g/dL (32.0-36.0); Mean Corpuscular Hemoglobin 30.9 pg (27.0-31.0); Mean Corpuscular Volume 92.6 fl (78.0-98.0); Mean Platelet Volume 7.4 fL (7.4-10.4); Platelet Count 271 10x3/uL (130-400); RBC Distribution Width 13.5 % (11.5-14.5); Red Blood Cell (RBC) Count 3.76 mill/uL (4.70-6.10); White Blood Cell (WBC) Count 7.9 10x3/uL (4.8-10.8)
[2022-06-19 11:10] LABS: ALT (SGPT) 40 U/L (8-55); AST (SGOT) 18 U/L (5-34); Albumin 3.7 g/dL (3.5-5.0); Alkaline Phosphatase 69 U/L (40-110); Anion Gap 12 mmol/L (10-20); BUN (Urea Nitrogen) 19 mg/dL (8.9-20.6); Bilirubin, Total 0.3 mg/dL (0.2-1.2); CRP (Inflammatory) Less than 0.50 mg/dL (= or < 0.5); Calc. Creatinine Clearance 104 mL/min (70-130); Calcium 9.7 mg/dL (7.8-10.44); Carbon Dioxide 29 mmol/L (22-29); Chloride 98 mmol/L (98-107); Estimated GFR 115; Globulin 3.5 g/dL (2.4-3.5); Glucose 204 mg/dL (70-105); Potassium 4.2 mmol/L (3.5-5.1); Protein, Total 7.2 g/dL (6.0-8.3); Sodium 135 mmol/L (136-145)
[2022-06-19 15:23] VITALS: BMI 18.8
[2022-06-19] MEDS: cefTRIAXone\\ROCEPHIN 2 GM in Sodium Chloride 0.9% 100 ML IVPB SCH (17:16)
[2022-06-19] MEDS: Diphenoxylate HCl/Atropine Tablet PO PRN (17:24)
[2022-06-19] MEDS: Lantus 1000 UNITS/10 ML VIAL SC SCH (20:03)
[2022-06-20] MEDS: Gabapentin 300 MG CAP PO SCH ×2 (08:11→20:29)
[2022-06-20] MEDS: Famotidine 20 MG TAB PO SCH ×2 (08:12→20:31)
[2022-06-20] MEDS: Saccharomyces boulardii 250 MG CAP PO SCH (08:12)
[2022-06-20] MEDS: Enoxaparin Sodium 40 MG/0.4 ML SYRINGE SC SCH (08:12)
[2022-06-20] MEDS: metFORMIN XR 500 MG TAB PO SCH ×2 (08:12→17:02)
[2022-06-20] MEDS: Nicotine 14 MG PATCH TOP SCH (08:12)
[2022-06-20] MEDS: Insulin Regular 300 UNITS/3 ML VIAL SC PRN ×3 (08:13→17:03)
[2022-06-20] MEDS: Loperamide HCl 2 MG CAP PO PRN ×2 (08:16→17:02)
[2022-06-20] MEDS: cefTRIAXone\\ROCEPHIN 2 GM in Sodium Chloride 0.9% 100 ML IVPB SCH (16:21)
[2022-06-20] MEDS: Lantus 1000 UNITS/10 ML VIAL SC SCH (20:20)
[2022-06-20] MEDS: Diphenoxylate HCl/Atropine Tablet PO PRN (20:29)
[2022-06-20] MEDS: HYDROcodone/Acetaminophen 5/325 mg Tablet PO PRN (20:31)
[2022-06-21] MEDS: Gabapentin 300 MG CAP PO SCH ×2 (08:18→20:17)
[2022-06-21] MEDS: metFORMIN XR 500 MG TAB PO SCH ×2 (08:18→16:25)
[2022-06-21] MEDS: Saccharomyces boulardii 250 MG CAP PO SCH (08:18)
[2022-06-21] MEDS: Famotidine 20 MG TAB PO SCH ×2 (08:18→20:17)
[2022-06-21] MEDS: Enoxaparin Sodium 40 MG/0.4 ML SYRINGE SC SCH (08:19)
[2022-06-21] MEDS: Nicotine 14 MG PATCH TOP SCH ×2 (08:19→08:25)
[2022-06-21] MEDS: Insulin Regular 300 UNITS/3 ML VIAL SC PRN ×2 (08:20→17:28)
[2022-06-21] MEDS: cefTRIAXone\\ROCEPHIN 2 GM in Sodium Chloride 0.9% 100 ML IVPB SCH (16:26)
[2022-06-21] MEDS: HYDROcodone/Acetaminophen 5/325 mg Tablet PO PRN (16:40)
[2022-06-21] MEDS: Diphenoxylate HCl/Atropine Tablet PO PRN (20:21)
[2022-06-21] MEDS: Lantus 1000 UNITS/10 ML VIAL SC SCH (20:22)
[2022-06-22] MEDS: HYDROcodone/Acetaminophen 5/325 mg Tablet PO PRN (04:55)
[2022-06-22] MEDS: Loperamide HCl 2 MG CAP PO PRN ×3 (04:58→15:12)
[2022-06-22 06:13] VITALS: BP 117/72; TEMP 98.5
[2022-06-22] MEDS ORDERED: traMADol HCl 50 MG TAB PO PRN (07:22)
[2022-06-22] MEDS: Insulin Regular 300 UNITS/3 ML VIAL SC PRN (08:47)
[2022-06-22] MEDS: metFORMIN XR 500 MG TAB PO SCH (08:48)
[2022-06-22] MEDS: Gabapentin 300 MG CAP PO SCH (08:49)
[2022-06-22] MEDS: Saccharomyces boulardii 250 MG CAP PO SCH (08:50)
[2022-06-22] MEDS: Famotidine 20 MG TAB PO SCH (08:50)
[2022-06-22] MEDS: Nicotine 14 MG PATCH TOP SCH (08:55)
[2022-06-22] MEDS ORDERED: Enoxaparin Sodium 30 MG/0.3 ML SYRINGE SC SCH (09:00)
== END 2022-06-22 16:35 | disposition home or self-care (01) | DRG 871 ==
LOC: BURMED 10:00
PROVIDERS: ADMIT Family Medicine; ATTEND Nurse Practitioner
DX: A41.01 Sepsis due to Methicillin susceptible Staphylococcus aureus (principal); J86.9 Pyothorax without fistula; L02.413 Cutaneous abscess of right upper limb; J91.8 Pleural effusion in other conditions classified elsewhere; Z20.822 Contact with and (suspected) exposure to COVID-19; E11.9 Type 2 diabetes mellitus without complications; K52.9 Noninfective gastroenteritis and colitis, unspecified; M60.80 Other myositis, unspecified site; I10 Essential (primary) hypertension; E78.5 Hyperlipidemia, unspecified; F17.210 Nicotine dependence, cigarettes, uncomplicated; F32.A Depression, unspecified; L89.159 Pressure ulcer of sacral region, unspecified stage; D64.9 Anemia, unspecified; E11.42 Type 2 diabetes mellitus with diabetic polyneuropathy; Z79.4 Long term (current) use of insulin; Z79.84 Long term (current) use of oral hypoglycemic drugs; Z79.899 Other long term (current) drug therapy; Z80.3 Family history of malignant neoplasm of breast
CPT/HCPCS: 36415; 36416; 80048; 80053; 81003; 83036; 83630; 85014; 85018; 85025; 85049; 86140; 87177; 87505; 87811; 97602; J0696; J1650; J1815; J3490; Q0162; U0003; U0005

== ENCOUNTER 2022-10-11 15:54 | Emergency (ER) | payer OTHER ==
[2022-10-11 16:30] LABS: #Basophils 0.1 thou/uL (0.0-0.2); #Eosinphils 0.4 thou/uL (0.0-0.7); #Monocytes 0.4 thou/uL (0.11-0.59); #Neutrophils 4.2 thou/uL (1.40-6.50); %Basophils 1.7 % (0.0-1.0); %Eosinophils 5.5 % (0.0-10.0); %Lymphocytes 28.1 % (21.0-51.0); %Monocytes 5.6 % (0.0-10.0); %Neutrophils 59.1 % (42.0-75.0); Hemoglobin 9.7 g/dL (14.0-18.0); Mean Corpuscular HGB CONC 31.3 g/dL (32.0-36.0); Mean Corpuscular Hemoglobin 30.3 pg (27.0-31.0); Mean Platelet Volume 6.5 fL (7.4-10.4); Platelet Count 363 10x3/uL (130-400); RBC Distribution Width 14.4 % (11.5-14.5); Red Blood Cell (RBC) Count 3.21 mill/uL (4.70-6.10)
[2022-10-11 16:48] LABS: ALT (SGPT) 21 U/L (8-55); AST (SGOT) 13 U/L (5-34); Albumin 3.3 g/dL (3.5-5.0); Alkaline Phosphatase 64 U/L (40-110); Anion Gap 11 mmol/L (10-20); BUN (Urea Nitrogen) 8 mg/dL (8.9-20.6); Bilirubin, Total 0.3 mg/dL (0.2-1.2); Calc. Creatinine Clearance 0 mL/min (70-130); Calcium 8.6 mg/dL (7.8-10.44); Carbon Dioxide 30 mmol/L (22-29); Chloride 101 mmol/L (98-107); Estimated GFR 116; Globulin 2.9 g/dL (2.4-3.5); Glucose 228 mg/dL (70-105); Potassium 4.4 mmol/L (3.5-5.1); Protein, Total 6.2 g/dL (6.0-8.3); Sodium 138 mmol/L (136-145)
[2022-10-11 16:50] LABS: Bilirubin Negative (Negative); Blood, Urine Large (Negative); Clarity Turbid (Clear); Glucose, Urine (Dipstick) 250 mg/dL (Negative); Ketone, Urine Negative (Negative); Leukocyte Small (Negative); Nitrite Positive (Negative); Protein, Urine (Dipstick) > or equal to 300 mg/dL (Neg-Trace); Specific Gravity, Urine 1.025 (1.005-1.030); Urobilinogen 0.2 mg/dL (Less than 2)
[2022-10-11 17:02] LABS: RBC/HPF 21-50 HPF (0-3); Squamous Epithelial None Seen HPF (0-3); WBC/HPF Greater Than 50 HPF (0-3)
[2022-10-11 17:03] LABS: Bacteria/HPF 3+ HPF (None Seen); Calcium Oxalate Crystals Rare HPF (None Seen); Mucous/LPF 1+ LPF (<2+)
== END 2022-10-11 17:13 | disposition home or self-care (01) ==
LOC: BURERS 15:54
DX: R60.0 Localized edema (principal); N31.9 Neuromuscular dysfunction of bladder, unspecified; E46 Unspecified protein-calorie malnutrition; I10 Essential (primary) hypertension; E78.5 Hyperlipidemia, unspecified; E11.40 Type 2 diabetes mellitus with diabetic neuropathy, unspecified; F17.210 Nicotine dependence, cigarettes, uncomplicated; Z79.4 Long term (current) use of insulin; Z79.84 Long term (current) use of oral hypoglycemic drugs; Z79.899 Other long term (current) drug therapy
CPT/HCPCS: 71045; 80053; 81003; 81015; 83605; 83880; 84484; 85025; 87086; 93005

== ENCOUNTER 2022-10-19 18:12 | Emergency (ER) | payer OTHER ==
[2022-10-19 19:24] LABS: #Eosinphils 0.1 thou/uL (0.0-0.7); #Lymphocytes 1.7 thou/uL (1.20-3.40); #Monocytes 0.5 thou/uL (0.11-0.59); #Neutrophils 3.5 thou/uL (1.40-6.50); %Basophils 0.6 % (0.0-1.0); %Eosinophils 2.2 % (0.0-10.0); %Lymphocytes 29.2 % (21.0-51.0); %Monocytes 7.9 % (0.0-10.0); %Neutrophils 60.1 % (42.0-75.0); Hemoglobin 11.3 g/dL (14.0-18.0); Mean Corpuscular HGB CONC 31.5 g/dL (32.0-36.0); Mean Corpuscular Hemoglobin 30.3 pg (27.0-31.0); Mean Corpuscular Volume 96.4 fl (78.0-98.0); Mean Platelet Volume 6.7 fL (7.4-10.4); Platelet Count 320 10x3/uL (130-400); RBC Distribution Width 14.3 % (11.5-14.5); Red Blood Cell (RBC) Count 3.71 mill/uL (4.70-6.10); White Blood Cell (WBC) Count 5.9 10x3/uL (4.8-10.8)
[2022-10-19 19:43] LABS: ALT (SGPT) 37 U/L (8-55); AST (SGOT) 28 U/L (5-34); Albumin 4.1 g/dL (3.5-5.0); Alkaline Phosphatase 88 U/L (40-110); Anion Gap 15 mmol/L (10-20); BUN (Urea Nitrogen) 23 mg/dL (8.9-20.6); Bilirubin, Total 0.8 mg/dL (0.2-1.2); Calc. Creatinine Clearance 0 mL/min (70-130); Calcium 9.4 mg/dL (7.8-10.44); Carbon Dioxide 20 mmol/L (22-29); Chloride 94 mmol/L (98-107); Estimated GFR 99; Globulin 3.8 g/dL (2.4-3.5); Lipase 12 U/L (8-78); Potassium 4.8 mmol/L (3.5-5.1); Protein, Total 7.9 g/dL (6.0-8.3); Sodium 124 mmol/L (136-145)
[2022-10-19 19:46] LABS: Glucose 693 mg/dL (70-105)
[2022-10-19 20:16] LABS: Base Excess-Venous -2.4 mmol/L (-2.0 to 3.0); Bicarbonate (HCO3v) 23.5 mmol/L (22.0-28.0); CO2 Tension (PvCO2) 43.8 mmHg (42.0-51.0); Calcium, Ionized 1.19 mmol/L (1.15-1.33); Chloride 95 mmol/L (98-107); Hemoglobin - Calc 11.7 g/dL (14.0-18.0); Potassium 5.1 mmol/L (3.5-5.1); Sodium 126 mmol/L (138-145); T. Carbon Dioxide 24.8 mmol/L (22.0-28.0); vO2 Saturation-calc 82.5 % (60.0-85.0)
[2022-10-19] MEDS ORDERED: Morphine 4 MG/ML VIAL ONE (21:26)
== END 2022-10-20 00:17 | disposition home or self-care (01) ==
LOC: BURERS 18:12
DX: M54.42 Lumbago with sciatica, left side (principal); R19.7 Diarrhea, unspecified; E11.65 Type 2 diabetes mellitus with hyperglycemia; I10 Essential (primary) hypertension; E78.5 Hyperlipidemia, unspecified; E11.40 Type 2 diabetes mellitus with diabetic neuropathy, unspecified; F17.210 Nicotine dependence, cigarettes, uncomplicated; Z79.84 Long term (current) use of oral hypoglycemic drugs
CPT/HCPCS: 36415; 36416; 80053; 82330; 82803; 83605; 83690; 85025; 96361; 96374; J2270

== ENCOUNTER 2022-10-25 10:57 | Outpatient (CLI) | payer OTHER | END 2022-10-25 10:58 | disposition home or self-care (01) | LOC: BURRAD 10:57 | PROVIDERS: ATTEND Physician Assistant | DX: M54.42 Lumbago with sciatica, left side (principal); M47.816 Spondylosis without myelopathy or radiculopathy, lumbar region | CPT/HCPCS: 72100 ==

== ENCOUNTER 2022-11-04 12:46 | Emergency (ER) | payer OTHER ==
[2022-11-04 13:15] LABS: #Basophils 0.2 thou/uL (0.0-0.2); #Eosinphils 0.1 thou/uL (0.0-0.7); #Lymphocytes 2.8 thou/uL (1.20-3.40); #Neutrophils 13.9 thou/uL (1.40-6.50); %Eosinophils 0.8 % (0.0-10.0); %Lymphocytes 15.7 % (21.0-51.0); %Monocytes 5.4 % (0.0-10.0); %Neutrophils 77.1 % (42.0-75.0); Hemoglobin 11.4 g/dL (14.0-18.0); Mean Corpuscular HGB CONC 32.7 g/dL (32.0-36.0); Mean Corpuscular Hemoglobin 30.6 pg (27.0-31.0); Mean Corpuscular Volume 93.5 fl (78.0-98.0); Mean Platelet Volume 8.1 fL (7.4-10.4); Platelet Count 516 10x3/uL (130-400); RBC Distribution Width 13.7 % (11.5-14.5); Red Blood Cell (RBC) Count 3.73 mill/uL (4.70-6.10)
[2022-11-04 13:31] LABS: ALT (SGPT) 10 U/L (8-55); AST (SGOT) 8 U/L (5-34); Albumin 3.4 g/dL (3.5-5.0); Alkaline Phosphatase 80 U/L (40-110); Anion Gap 15 mmol/L (10-20); BUN (Urea Nitrogen) 10 mg/dL (8.9-20.6); Bilirubin, Total 0.5 mg/dL (0.2-1.2); Calc. Creatinine Clearance 0 mL/min (70-130); Calcium 9.1 mg/dL (7.8-10.44); Carbon Dioxide 27 mmol/L (22-29); Chloride 97 mmol/L (98-107); Estimated GFR 112; Globulin 4.7 g/dL (2.4-3.5); Glucose 200 mg/dL (70-105); Magnesium 1.7 mg/dL (1.6-2.6); Potassium 4.4 mmol/L (3.5-5.1); Protein, Total 8.1 g/dL (6.0-8.3); Sodium 135 mmol/L (136-145)
[2022-11-04 13:43] LABS: Lipase Less than 4 U/L (8-78)
[2022-11-04 13:47] LABS: Bilirubin Small (Negative); Blood, Urine Small (Negative); Clarity Cloudy (Clear); Glucose, Urine (Dipstick) Negative (Negative); Ketone, Urine Negative (Negative); Leukocyte Moderate (Negative); Nitrite Negative (Negative); Protein, Urine (Dipstick) 100 mg/dL (Neg-Trace); Specific Gravity, Urine 1.025 (1.005-1.030); pH, Urine 5.5 (5.0-9.0)
[2022-11-04 14:00] LABS: Squamous Epithelial 0-3 HPF (0-3); WBC/HPF 21-50 HPF (0-3)
[2022-11-04 14:01] LABS: Mucous/LPF 2+ LPF (<2+)
[2022-11-04 14:02] LABS: Bacteria/HPF 3+ HPF (None Seen)
[2022-11-04] MEDS ORDERED: cefTRIAXone (ROCEPHIN) 1 GM VIAL ONE (14:31)
[2022-11-04] MEDS ORDERED: Sodium Chloride 0.9% 100 ML ONE (14:31)
[2022-11-04] MEDS ORDERED: Cyclobenzaprine 10 MG TAB ONE (14:49)
[2022-11-04] MEDS ORDERED: Ketorolac Tromethamine 30 MG/ML VIAL ONE (14:49)
[2022-11-04] MEDS ORDERED: Iopamidol 370 76% 100 ML VIAL ONE (16:13)
== END 2022-11-04 15:00 | disposition home or self-care (01) ==
LOC: BURERS 12:46
DX: N39.0 Urinary tract infection, site not specified (principal); I10 Essential (primary) hypertension; E78.5 Hyperlipidemia, unspecified; E11.40 Type 2 diabetes mellitus with diabetic neuropathy, unspecified; F17.210 Nicotine dependence, cigarettes, uncomplicated; Z79.899 Other long term (current) drug therapy; Z79.84 Long term (current) use of oral hypoglycemic drugs
CPT/HCPCS: 74177; 80053; 81003; 81015; 83690; 83735; 85025; 87077; 87086; 87186; 96365; 96375; J0696; J1885; J3490; Q9967

== ENCOUNTER 2022-11-08 12:33 | Emergency (ER) | payer OTHER ==
[2022-11-08 17:09] LABS: ALT (SGPT) 10 U/L (8-55); AST (SGOT) 7 U/L (5-34); Albumin 3.2 g/dL (3.5-5.0); Alkaline Phosphatase 76 U/L (40-110); Anion Gap 11 mmol/L (10-20); BUN (Urea Nitrogen) 9 mg/dL (8.9-20.6); Bilirubin, Total 0.2 mg/dL (0.2-1.2); Calc. Creatinine Clearance 0 mL/min (70-130); Carbon Dioxide 33 mmol/L (22-29); Chloride 97 mmol/L (98-107); Estimated GFR 97; Globulin 4.5 g/dL (2.4-3.5); Glucose 140 mg/dL (70-105); Lipase 6 U/L (8-78); Magnesium 1.7 mg/dL (1.6-2.6); Potassium 3.5 mmol/L (3.5-5.1); Protein, Total 7.7 g/dL (6.0-8.3); Sodium 137 mmol/L (136-145)
[2022-11-08 17:56] LABS: #Basophils 0.1 thou/uL (0.0-0.2); #Eosinphils 0.1 thou/uL (0.0-0.7); #Monocytes 0.6 thou/uL (0.11-0.59); #Neutrophils 11.3 thou/uL (1.40-6.50); %Basophils 0.6 % (0.0-1.0); %Eosinophils 0.6 % (0.0-10.0); %Lymphocytes 15.5 % (21.0-51.0); %Monocytes 3.9 % (0.0-10.0); %Neutrophils 79.4 % (42.0-75.0); Hemoglobin 10.5 g/dL (14.0-18.0); Mean Corpuscular HGB CONC 33.3 g/dL (32.0-36.0); Mean Corpuscular Hemoglobin 30.3 pg (27.0-31.0); Mean Corpuscular Volume 91.1 fl (78.0-98.0); Mean Platelet Volume 7.2 fL (7.4-10.4); Platelet Count 445 10x3/uL (130-400); RBC Distribution Width 13.3 % (11.5-14.5); Red Blood Cell (RBC) Count 3.45 mill/uL (4.70-6.10); White Blood Cell (WBC) Count 14.2 10x3/uL (4.8-10.8)
[2022-11-08 18:33] LABS: MDiff Complete? YES
== END 2022-11-08 16:16 | disposition home or self-care (01) ==
LOC: BURERS 12:33
DX: R62.7 Adult failure to thrive (principal); F32.A Depression, unspecified; I10 Essential (primary) hypertension; E78.5 Hyperlipidemia, unspecified; E11.40 Type 2 diabetes mellitus with diabetic neuropathy, unspecified; F17.210 Nicotine dependence, cigarettes, uncomplicated
CPT/HCPCS: 36416; 70450; 71045; 80053; 83690; 83735; 83880; 84443; 84484; 85025; 93005

== ENCOUNTER 2022-11-17 18:55 | Emergency (ER) | payer BC, OTHER ==
[2022-11-17] MEDS ORDERED: Fentanyl 100 MCG/2 ML VIAL ONE (19:09)
[2022-11-17] MEDS ORDERED: Ondansetron PF 4 MG/2 ML Vial ONE (19:10)
[2022-11-17 19:22] LABS: #Basophils 0.2 thou/uL (0.0-0.2); #Eosinphils 0.5 thou/uL (0.0-0.7); #Lymphocytes 3.1 thou/uL (1.20-3.40); #Monocytes 0.7 thou/uL (0.11-0.59); #Neutrophils 5.6 thou/uL (1.40-6.50); %Eosinophils 5.4 % (0.0-10.0); %Lymphocytes 30.8 % (21.0-51.0); %Monocytes 6.8 % (0.0-10.0); Mean Corpuscular HGB CONC 32.4 g/dL (32.0-36.0); Mean Corpuscular Hemoglobin 30.1 pg (27.0-31.0); Mean Corpuscular Volume 92.9 fl (78.0-98.0); Mean Platelet Volume 6.5 fL (7.4-10.4); Platelet Count 429 10x3/uL (130-400); RBC Distribution Width 13.8 % (11.5-14.5); Red Blood Cell (RBC) Count 2.99 mill/uL (4.70-6.10); White Blood Cell (WBC) Count 10.1 10x3/uL (4.8-10.8)
[2022-11-17 19:36] LABS: Acetaminophen Less than 10.0 mcg/mL (10.0-30.0); Alcohol Less than 10 mg/dL (Less than 10); Salicylate Less than 8.0 mg/dL (15.0-30.0)
[2022-11-17 19:38] LABS: ALT (SGPT) 18 U/L (8-55); AST (SGOT) 19 U/L (5-34); Albumin 3.1 g/dL (3.5-5.0); Alkaline Phosphatase 68 U/L (40-110); Anion Gap 10 mmol/L (10-20); BUN (Urea Nitrogen) 5 mg/dL (8.9-20.6); Bilirubin, Total 0.3 mg/dL (0.2-1.2); Calc. Creatinine Clearance 0 mL/min (70-130); Calcium 9.2 mg/dL (7.8-10.44); Carbon Dioxide 32 mmol/L (22-29); Chloride 99 mmol/L (98-107); Estimated GFR 118; Globulin 4.5 g/dL (2.4-3.5); Potassium 3.7 mmol/L (3.5-5.1); Protein, Total 7.6 g/dL (6.0-8.3); Sodium 137 mmol/L (136-145)
[2022-11-17 19:46] LABS: Glucose 50 mg/dL (70-105)
== END 2022-11-17 20:55 | disposition home or self-care (01) ==
LOC: BURERS 18:55
DX: R10.31 Right lower quadrant pain (principal); R19.00 Intra-abdominal and pelvic swelling, mass and lump, unspecified site; D64.9 Anemia, unspecified; I10 Essential (primary) hypertension; E11.40 Type 2 diabetes mellitus with diabetic neuropathy, unspecified; E78.00 Pure hypercholesterolemia, unspecified; F17.210 Nicotine dependence, cigarettes, uncomplicated; Z79.4 Long term (current) use of insulin; Z79.84 Long term (current) use of oral hypoglycemic drugs; Z79.899 Other long term (current) drug therapy
CPT/HCPCS: 36415; 36416; 74177; 80053; 80307; 85025; 96361; 96374; 96375; J2405; J3010

== ENCOUNTER 2022-12-26 13:44 | Emergency (ER) | payer OTHER ==
[2022-12-26 14:22] LABS: #Basophils 0.1 thou/uL (0.0-0.2); #Eosinphils 0.2 thou/uL (0.0-0.7); #Lymphocytes 1.7 thou/uL (1.20-3.40); #Monocytes 0.4 thou/uL (0.11-0.59); #Neutrophils 2.8 thou/uL (1.40-6.50); %Basophils 1.9 % (0.0-1.0); %Eosinophils 3.7 % (0.0-10.0); %Monocytes 7.2 % (0.0-10.0); %Neutrophils 54.2 % (42.0-75.0); Hemoglobin 11.8 g/dL (14.0-18.0); Mean Corpuscular HGB CONC 31.8 g/dL (32.0-36.0); Mean Corpuscular Hemoglobin 28.9 pg (27.0-31.0); Mean Corpuscular Volume 90.9 fl (78.0-98.0); Platelet Count 266 10x3/uL (130-400); Red Blood Cell (RBC) Count 4.07 mill/uL (4.70-6.10); White Blood Cell (WBC) Count 5.2 10x3/uL (4.8-10.8)
[2022-12-26 14:31] LABS: Base Excess-Venous 4.2 mmol/L (-2.0 to 3.0); Bicarbonate (HCO3v) 31.7 mmol/L (22.0-28.0); CO2 Tension (PvCO2) 58.9 mmHg (42.0-51.0); Calcium, Ionized 1.22 mmol/L (1.15-1.33); Chloride 87 mmol/L (98-107); Hemoglobin - Calc 13.8 g/dL (14.0-18.0); Potassium 4.3 mmol/L (3.5-5.1); Sodium 127 mmol/L (138-145); T. Carbon Dioxide 33.5 mmol/L (22.0-28.0); vO2 Saturation-calc 78.4 % (60.0-85.0)
[2022-12-26 14:36] LABS: ALT (SGPT) 16 U/L (8-55); AST (SGOT) 9 U/L (5-34); Albumin 3.7 g/dL (3.5-5.0); Alkaline Phosphatase 86 U/L (40-110); Anion Gap 13 mmol/L (10-20); BUN (Urea Nitrogen) 16 mg/dL (8.9-20.6); Bilirubin, Total 0.6 mg/dL (0.2-1.2); Calc. Creatinine Clearance 0 mL/min (70-130); Calcium 9.4 mg/dL (7.8-10.44); Carbon Dioxide 31 mmol/L (22-29); Chloride 88 mmol/L (98-107); Estimated GFR 74; Globulin 3.9 g/dL (2.4-3.5); Magnesium 1.4 mg/dL (1.6-2.6); Potassium 4.2 mmol/L (3.5-5.1); Protein, Total 7.6 g/dL (6.0-8.3); Sodium 128 mmol/L (136-145)
[2022-12-26 14:38] LABS: Glucose 696 mg/dL (70-105)
[2022-12-26] MEDS ORDERED: Insulin Regular 300 UNITS/3 ML VIAL ONE (16:34)
[2022-12-26 19:31] LABS: Anion Gap 10 mmol/L (10-20); BUN (Urea Nitrogen) 13 mg/dL (8.9-20.6); Calc. Creatinine Clearance 0 mL/min (70-130); Calcium 8.5 mg/dL (7.8-10.44); Carbon Dioxide 30 mmol/L (22-29); Chloride 97 mmol/L (98-107); Estimated GFR 106; Glucose 375 mg/dL (70-105); Potassium 3.5 mmol/L (3.5-5.1); Sodium 133 mmol/L (136-145)
== END 2022-12-26 20:22 | disposition home or self-care (01) ==
LOC: BURERS 13:44
DX: E11.65 Type 2 diabetes mellitus with hyperglycemia (principal); E11.40 Type 2 diabetes mellitus with diabetic neuropathy, unspecified; I10 Essential (primary) hypertension; E78.5 Hyperlipidemia, unspecified; F17.210 Nicotine dependence, cigarettes, uncomplicated; Z79.4 Long term (current) use of insulin; Z79.899 Other long term (current) drug therapy
CPT/HCPCS: 36415; 36416; 80053; 82330; 82803; 83735; 85025; 96374; 96376; J1815

== ENCOUNTER 2023-03-05 15:42 | Emergency (ER) | payer OTHER ==
[2023-03-05] MEDS ORDERED: Morphine 10 MG/ML VIAL ONE (15:55)
== END 2023-03-05 16:33 | disposition home or self-care (01) ==
LOC: BURERS 15:42
DX: G89.29 Other chronic pain (principal); M79.662 Pain in left lower leg; M79.661 Pain in right lower leg; I10 Essential (primary) hypertension; E11.40 Type 2 diabetes mellitus with diabetic neuropathy, unspecified
CPT/HCPCS: 96372; 99283; J2270

== ENCOUNTER 2023-04-20 20:21 | Emergency (ER) | payer OTHER ==
[2023-04-20 21:13] LABS: #Basophils 0.1 thou/uL (0.0-0.2); #Eosinphils 0.3 thou/uL (0.0-0.7); #Lymphocytes 2.5 thou/uL (1.20-3.40); #Monocytes 0.6 thou/uL (0.11-0.59); #Neutrophils 4.4 thou/uL (1.40-6.50); %Basophils 1.7 % (0.0-1.0); %Eosinophils 3.7 % (0.0-10.0); %Lymphocytes 31.8 % (21.0-51.0); %Monocytes 7.7 % (0.0-10.0); %Neutrophils 55.2 % (42.0-75.0); Hematocrit 39.2 % (42.0-52.0); Hemoglobin 13.2 g/dL (14.0-18.0); Mean Corpuscular HGB CONC 33.7 g/dL (32.0-36.0); Mean Corpuscular Hemoglobin 30.3 pg (27.0-31.0); Mean Corpuscular Volume 90.1 fl (78.0-98.0); Mean Platelet Volume 8.9 fL (7.4-10.4); Platelet Count 273 10x3/uL (130-400); Red Blood Cell (RBC) Count 4.35 mill/uL (4.70-6.10)
[2023-04-20 21:21] LABS: Bilirubin Negative (Negative); Blood, Urine Negative (Negative); Clarity Clear (Clear); Glucose, Urine (Dipstick) 500 mg/dL (Negative); Ketone, Urine Negative (Negative); Leukocyte Negative (Negative); Nitrite Negative (Negative); Protein, Urine (Dipstick) Negative (Neg-Trace); Urobilinogen 0.2 mg/dL (Less than 2); pH, Urine 5.5 (5.0-9.0)
[2023-04-20 21:26] LABS: Base Excess-Venous 3.8 mmol/L (-2.0 to 3.0); Bicarbonate (HCO3v) 30.1 mmol/L (22.0-28.0); Calcium, Ionized 1.17 mmol/L (1.15-1.33); Chloride 86 mmol/L (98-107); Hemoglobin - Calc 14.1 g/dL (14.0-18.0); Potassium 4.2 mmol/L (3.5-5.1); Sodium 127 mmol/L (138-145); T. Carbon Dioxide 31.7 mmol/L (22.0-28.0); vO2 Saturation-calc 51.4 % (60.0-85.0)
[2023-04-20 21:28] LABS: Bacteria/HPF 1+ HPF (None Seen); CAUTI Indications for Culture Alt mental st,lethar; RBC/HPF None Seen HPF (0-3); Squamous Epithelial None Seen HPF (0-3); WBC/HPF 21-50 HPF (0-3)
[2023-04-20 21:29] LABS: Urine Culture Reflex Yes Yes
[2023-04-20 21:32] LABS: ALT (SGPT) 11 U/L (8-55); AST (SGOT) 13 U/L (5-34); Albumin 4.1 g/dL (3.5-5.0); Alkaline Phosphatase 63 U/L (40-110); Anion Gap 16 mmol/L (10-20); BUN (Urea Nitrogen) 15 mg/dL (8.9-20.6); Bilirubin, Total 0.4 mg/dL (0.2-1.2); Calc. Creatinine Clearance 0 mL/min (70-130); Calcium 9.5 mg/dL (7.8-10.44); Carbon Dioxide 27 mmol/L (22-29); Chloride 89 mmol/L (98-107); Estimated GFR 62; Globulin 3.2 g/dL (2.4-3.5); Lipase 16 U/L (8-78); Magnesium 1.6 mg/dL (1.6-2.6); Potassium 4.8 mmol/L (3.5-5.1); Protein, Total 7.3 g/dL (6.0-8.3); Sodium 127 mmol/L (136-145)
[2023-04-20 21:33] LABS: Glucose 483 mg/dL (70-105)
[2023-04-20] MEDS ORDERED: cefTRIAXone (ROCEPHIN) 1 GM VIAL ONE (21:35)
[2023-04-20 21:37] LABS: Troponin I 0.016 ng/mL (< 0.028)
[2023-04-20] MEDS ORDERED: Ondansetron ODT 4 MG TAB ONE (23:14)
[2023-04-21 17:02] LABS: Hemoglobin A1c 10.9 % (4.0-6.0)
== END 2023-04-20 23:40 | disposition home or self-care (01) ==
LOC: BURERS 20:21
DX: N39.0 Urinary tract infection, site not specified (principal); E11.65 Type 2 diabetes mellitus with hyperglycemia; F17.210 Nicotine dependence, cigarettes, uncomplicated; I10 Essential (primary) hypertension; E11.40 Type 2 diabetes mellitus with diabetic neuropathy, unspecified; Z79.84 Long term (current) use of oral hypoglycemic drugs; Z79.4 Long term (current) use of insulin; Z79.899 Other long term (current) drug therapy
CPT/HCPCS: 71045; 80053; 81001; 82330; 82803; 83036; 83690; 83735; 84484; 85025; 87077; 87086; 87186; 93005; 96365; J0696; Q0162

== ENCOUNTER 2023-05-21 13:06 | Outpatient (CLI) | payer OTHER | END 2023-05-21 13:07 | disposition home or self-care (01) | LOC: BURCT 13:06 | PROVIDERS: ATTEND Internal Medicine | DX: R91.8 Other nonspecific abnormal finding of lung field (principal) | CPT/HCPCS: 71250 ==

== ENCOUNTER 2023-07-13 13:10 | Emergency (ER) | payer OTHER ==
[~2023-07-13 13:10] MED LIST: Iopamidol 370 76% 100 ML VIAL ONE
[2023-07-13] MEDS ORDERED: Metoclopramide HCl 10 MG (2 mL) VIAL ONE (13:33)
[2023-07-13 13:41] LABS: #Basophils 0.1 thou/uL (0.0-0.2); #Eosinphils 0.2 thou/uL (0.0-0.7); #Lymphocytes 1.7 thou/uL (1.20-3.40); #Monocytes 0.5 thou/uL (0.11-0.59); %Basophils 0.7 % (0.0-1.0); %Lymphocytes 20.6 % (21.0-51.0); %Monocytes 5.4 % (0.0-10.0); %Neutrophils 71.3 % (42.0-75.0); Hematocrit 43.3 % (42.0-52.0); Mean Corpuscular HGB CONC 32.4 g/dL (32.0-36.0); Mean Corpuscular Hemoglobin 29.4 pg (27.0-31.0); Mean Corpuscular Volume 90.6 fl (78.0-98.0); Mean Platelet Volume 8.8 fL (7.4-10.4); Platelet Count 264 10x3/uL (130-400); RBC Distribution Width 12.1 % (11.5-14.5); Red Blood Cell (RBC) Count 4.78 mill/uL (4.70-6.10); White Blood Cell (WBC) Count 8.5 10x3/uL (4.8-10.8)
[2023-07-13 14:01] LABS: ALT (SGPT) 14 U/L (8-55); AST (SGOT) 8 U/L (5-34); Albumin 4.4 g/dL (3.5-5.0); Alkaline Phosphatase 85 U/L (40-110); Anion Gap 28 mmol/L (10-20); BUN (Urea Nitrogen) 28 mg/dL (8.9-20.6); Bilirubin, Total 0.7 mg/dL (0.2-1.2); Calc. Creatinine Clearance 0 mL/min (70-130); Calcium 9.6 mg/dL (7.8-10.44); Carbon Dioxide 17 mmol/L (22-29); Chloride 91 mmol/L (98-107); Estimated GFR 51; Globulin 3.5 g/dL (2.4-3.5); Magnesium 1.6 mg/dL (1.6-2.6); Protein, Total 7.9 g/dL (6.0-8.3); Sodium 131 mmol/L (136-145)
[2023-07-13 14:03] LABS: Critical Call Chemistry @ 1403 NUR.CMA; Glucose 592 mg/dL (70-105)
[2023-07-13] MEDS ORDERED: Insulin Regular 300 UNITS/3 ML VIAL ONE (14:12)
[2023-07-13] MEDS ORDERED: Sodium Chloride 0.9% 1,000 ML ONE (14:13)
[2023-07-13 14:14] LABS: Bilirubin Small (Negative); Blood, Urine Small (Negative); Clarity Clear (Clear); Glucose, Urine (Dipstick) 500 mg/dL (Negative); Ketone, Urine > or equal to 80 mg/dL (Negative); Leukocyte Negative (Negative); Nitrite Negative (Negative); Protein, Urine (Dipstick) Trace mg/dL (Neg-Trace); Specific Gravity, Urine 1.015 (1.005-1.030); Urobilinogen 0.2 mg/dL (Less than 2)
[2023-07-13 14:26] LABS: CAUTI Indications for Culture Fever or rigors; RBC/HPF 0-3 HPF (0-3); Squamous Epithelial 0-3 HPF (0-3); WBC/HPF None Seen HPF (0-3)
[2023-07-13 14:27] LABS: Bacteria/HPF None Seen HPF (None Seen)
[2023-07-13 14:28] LABS: Urine Culture Reflex No No
[2023-07-13] MEDS ORDERED: INSULIN REGULAR IN 0.9 % NACL 100 UNITS/100 ML BAG ONE (14:32)
[2023-07-13 16:50] LABS: Phosphorus 4.3 mg/dL (2.3-4.7)
[2023-07-14 05:59] LABS: Base Excess-Venous -11.1 mmol/L (-2.0 to 3.0); Bicarbonate (HCO3v) 15.2 mmol/L (22.0-28.0); CO2 Tension (PvCO2) 35.2 mmHg (42.0-51.0)
[2023-07-14 06:00] LABS: Calcium, Ionized 1.12 mmol/L (1.15-1.33); Chloride 98 mmol/L (98-107); Hemoglobin - Calc 16.3 g/dL (14.0-18.0); Potassium 4.6 mmol/L (3.5-5.1); Sodium 128 mmol/L (138-145); T. Carbon Dioxide 16.3 mmol/L (22.0-28.0); vO2 Saturation-calc 92.7 % (60.0-85.0)
== END 2023-07-13 15:44 | disposition short-term general hospital (02) ==
LOC: BURERS 13:10
DX: E11.10 Type 2 diabetes mellitus with ketoacidosis without coma (principal); R11.2 Nausea with vomiting, unspecified; E11.65 Type 2 diabetes mellitus with hyperglycemia; G12.9 Spinal muscular atrophy, unspecified; E11.40 Type 2 diabetes mellitus with diabetic neuropathy, unspecified; I10 Essential (primary) hypertension; F17.200 Nicotine dependence, unspecified, uncomplicated; Z79.4 Long term (current) use of insulin; Z79.899 Other long term (current) drug therapy; Z79.84 Long term (current) use of oral hypoglycemic drugs
CPT/HCPCS: 36415; 74177; 80053; 81001; 82010; 82330; 82803; 83735; 84100; 85025; 96365; 96375; 96376; J1815; J2765; J7050; Q9967

== ENCOUNTER 2024-03-21 12:25 | Emergency (ER) | payer OTHER ==
[2024-03-21] MEDS ORDERED: Acetaminophen 500 MG TAB ONE (12:59)
[2024-03-21 13:09] LABS: Bilirubin Negative (Negative); Blood, Urine Negative (Negative); Clarity Clear (Clear); Glucose, Urine (Dipstick) >=1000 mg/dL (Negative); Ketone, Urine Trace mg/dL (Negative); Leukocyte Negative (Negative); Nitrite Negative (Negative); Protein, Urine (Dipstick) Negative (Neg-Trace); Specific Gravity, Urine 1.015 (1.005-1.030); pH, Urine 5.5 (5.0-9.0)
[2024-03-21 13:14] LABS: #Basophils 0.1 thou/uL (0.0-0.2); #Eosinphils 0.3 thou/uL (0.0-0.7); #Lymphocytes 2.4 thou/uL (1.20-3.40); #Monocytes 0.4 thou/uL (0.11-0.59); #Neutrophils 6.9 thou/uL (1.40-6.50); %Eosinophils 2.9 % (0.0-10.0); %Lymphocytes 23.9 % (21.0-51.0); %Neutrophils 68.1 % (42.0-75.0); Hematocrit 40.3 % (42.0-52.0); Hemoglobin 13.5 g/dL (14.0-18.0); Mean Corpuscular HGB CONC 33.6 g/dL (32.0-36.0); Mean Corpuscular Volume 83.4 fl (78.0-98.0); Mean Platelet Volume 8.3 fL (7.4-10.4); Platelet Count 246 10x3/uL (130-400); RBC Distribution Width 12.7 % (11.5-14.5); Red Blood Cell (RBC) Count 4.83 mill/uL (4.70-6.10); White Blood Cell (WBC) Count 10.1 10x3/uL (4.8-10.8)
[2024-03-21 13:18] LABS: ALT (SGPT) 18 U/L (8-55); AST (SGOT) 20 U/L (5-34); Albumin 3.9 g/dL (3.5-5.0); Alkaline Phosphatase 68 U/L (40-110); Anion Gap 14 mmol/L (10-20); BUN (Urea Nitrogen) 25 mg/dL (8.9-20.6); Bilirubin, Total 0.5 mg/dL (0.2-1.2); Calc. Creatinine Clearance 0 mL/min (70-130); Calcium 9.3 mg/dL (7.8-10.44); Carbon Dioxide 26 mmol/L (22-29); Chloride 99 mmol/L (98-107); Estimated GFR 57; Globulin 3.4 g/dL (2.4-3.5); Glucose 378 mg/dL (70-105); Potassium 5.2 mmol/L (3.5-5.1); Protein, Total 7.3 g/dL (6.0-8.3); Sodium 134 mmol/L (136-145)
[2024-03-21] MEDS ORDERED: Insulin Regular 300 UNITS/3 ML VIAL ONE (13:19)
[2024-03-21 13:29] LABS: Bacteria/HPF None Seen HPF (None Seen); CAUTI Indications for Culture Dysuria,urgency,freq; RBC/HPF None Seen HPF (0-3); Squamous Epithelial None Seen HPF (0-3); WBC/HPF None Seen HPF (0-3)
[2024-03-21 13:30] LABS: Urine Culture Reflex No No
[2024-03-21 13:44] LABS: Base Excess-Venous 2.9 mmol/L (-2.0 to 3.0); Bicarbonate (HCO3v) 28.1 mmol/L (22.0-28.0); CO2 Tension (PvCO2) 44.5 mmHg (42.0-51.0); Calcium, Ionized 1.19 mmol/L (1.15-1.33); Chloride 99 mmol/L (98-107); Hemoglobin - Calc 13.8 g/dL (14.0-18.0); Potassium 4.6 mmol/L (3.5-5.1); Sodium 135 mmol/L (138-145); T. Carbon Dioxide 29.5 mmol/L (22.0-28.0); vO2 Saturation-calc 95.4 % (60.0-85.0)
== END 2024-03-21 16:03 | disposition home or self-care (01) ==
LOC: BURERS 12:25
DX: E86.0 Dehydration (principal); E11.65 Type 2 diabetes mellitus with hyperglycemia; E87.5 Hyperkalemia; N28.9 Disorder of kidney and ureter, unspecified; E11.40 Type 2 diabetes mellitus with diabetic neuropathy, unspecified; I10 Essential (primary) hypertension; F17.210 Nicotine dependence, cigarettes, uncomplicated
CPT/HCPCS: 36416; 80053; 81001; 82330; 82803; 85025; 85379; 96360; 96361; 36415-59; J1815

== ENCOUNTER 2024-06-04 09:48 | Emergency (ER) | payer OTHER ==
[2024-06-09 12:10] LABS: Anion Gap 13 mmol/L (10-20); BUN (Urea Nitrogen) 14 mg/dL (8.9-20.6); Calc. Creatinine Clearance 0 mL/min (70-130); Carbon Dioxide 26 mmol/L (22-29); Chloride 102 mmol/L (98-107); Estimated GFR 74; Potassium 4.2 mmol/L (3.5-5.1); Sodium 137 mmol/L (136-145)
[2024-06-09 12:11] LABS: ALT (SGPT) 33 U/L (8-55); AST (SGOT) 28 U/L (5-34); Albumin 3.9 g/dL (3.5-5.0); Alkaline Phosphatase 61 U/L (40-110); Bilirubin, Total 0.5 mg/dL (0.2-1.2); Calcium 9.3 mg/dL (7.6-10.4); Globulin 3.2 g/dL (2.4-3.5); Glucose 127 mg/dL (70-105); Magnesium 2.1 mg/dL (1.6-2.6); Protein, Total 7.1 g/dL (6.0-8.3)
[2024-06-09 12:13] LABS: Troponin I Less than 0.010 ng/mL (< 0.028)
== END 2024-06-04 11:52 | disposition home or self-care (01) ==
LOC: BURERS 09:48
DX: R19.7 Diarrhea, unspecified (principal); R00.1 Bradycardia, unspecified; E11.40 Type 2 diabetes mellitus with diabetic neuropathy, unspecified; I10 Essential (primary) hypertension; E78.5 Hyperlipidemia, unspecified; F17.290 Nicotine dependence, other tobacco product, uncomplicated
CPT/HCPCS: 71046; 80053; 83735; 84484; 96360

== ENCOUNTER 2024-07-20 11:44 | Emergency (ER) | payer OTHER ==
[2024-07-20] MEDS ORDERED: Ondansetron PF 4 MG/2 ML Vial ONE (12:10)
[2024-07-20 12:20] LABS: Hematocrit 42.4 % (42.0-52.0); Hemoglobin 13.8 g/dL (14.0-18.0); Mean Corpuscular HGB CONC 32.4 g/dL (32.0-36.0); Mean Corpuscular Hemoglobin 29.3 pg (27.0-31.0); Mean Corpuscular Volume 90.4 fl (78.0-98.0); Mean Platelet Volume 8.3 fL (7.4-10.4); Platelet Count 261 10x3/uL (130-400); RBC Distribution Width 12.7 % (11.5-14.5); White Blood Cell (WBC) Count 22.5 10x3/uL (4.8-10.8)
[2024-07-20] MEDS ORDERED: Insulin Regular, Human 100 UNIT/ML 10 ML VIAL ONE (12:20)
[2024-07-20] MEDS ORDERED: INSULIN REGULAR IN 0.9 % NACL 100 ML ONE (12:20)
[2024-07-20 12:22] LABS: Troponin I 0.011 ng/mL (< 0.028)
[2024-07-20 12:23] LABS: ALT (SGPT) 24 U/L (8-55); AST (SGOT) 13 U/L (5-34); Albumin 4.3 g/dL (3.5-5.0); Alkaline Phosphatase 95 U/L (40-110); Anion Gap 38 mmol/L (10-20); BUN (Urea Nitrogen) 33 mg/dL (8.9-20.6); Bilirubin, Total 0.5 mg/dL (0.2-1.2); Calc. Creatinine Clearance 0 mL/min (70-130); Calcium 9.3 mg/dL (7.8-10.44); Chloride 94 mmol/L (98-107); Estimated GFR 26; Globulin 3.3 g/dL (2.4-3.5); Lipase 34 U/L (8-78); Magnesium 2.4 mg/dL (1.6-2.6); Protein, Total 7.6 g/dL (6.0-8.3); Sodium 135 mmol/L (136-145)
[2024-07-20 12:24] LABS: Bicarbonate (HCO3v) 10.3 mmol/L (22.0-28.0); CO2 Tension (PvCO2) 28.9 mmHg (42.0-51.0); Calcium, Ionized 0.99 mmol/L (1.15-1.33); Chloride 107 mmol/L (98-107); Hemoglobin - Calc 14.6 g/dL (14.0-18.0); Potassium 4.9 mmol/L (3.5-5.1); Sodium 133 mmol/L (138-145); T. Carbon Dioxide 11.2 mmol/L (22.0-28.0); vO2 Saturation-calc 96.9 % (60.0-85.0)
[2024-07-20 12:26] LABS: Carbon Dioxide 8 mmol/L (22-29); Glucose 749 mg/dL (70-105)
[2024-07-20 12:47] LABS: Band 2 % (5-11); Lymphocytes 4 % (21-51); MDiff Complete? YES; Monocytes 8 % (0-10); Neutrophil 86 % (42-75)
[2024-07-20] MEDS ORDERED: Piperacillin/Tazobactam 4.5 GM VIAL ONE (13:05)
[2024-07-20] MEDS ORDERED: Sodium Chloride 0.9% 100 ML ONE (13:05)
[2024-07-20 13:33] LABS: Bilirubin Small (Negative); Blood, Urine Negative (Negative); Clarity Clear (Clear); Glucose, Urine (Dipstick) 500 mg/dL (Negative); Ketone, Urine > or equal to 80 mg/dL (Negative); Leukocyte Negative (Negative); Nitrite Negative (Negative); Protein, Urine (Dipstick) Negative (Neg-Trace); Urobilinogen 0.2 mg/dL (Less than 2); pH, Urine 5.5 (5.0-9.0)
[2024-07-20 13:41] LABS: Bacteria/HPF 2+ HPF (None Seen); CAUTI Indications for Culture Dysuria,urgency,freq; RBC/HPF None Seen HPF (0-3); Squamous Epithelial 0-3 HPF (0-3); WBC/HPF 0-3 HPF (0-3)
[2024-07-20 13:43] LABS: Urine Culture Reflex No No
[2024-07-20 13:56] LABS: BUN (Urea Nitrogen) 33 mg/dL (8.9-20.6); Calc. Creatinine Clearance 0 mL/min (70-130); Calcium 8.4 mg/dL (7.8-10.44); Carbon Dioxide Less than 8 mmol/L (22-29); Chloride 104 mmol/L (98-107); Estimated GFR 32; Glucose 609 mg/dL (70-105); Potassium 3.9 mmol/L (3.5-5.1); Sodium 140 mmol/L (136-145)
== END 2024-07-20 13:55 | disposition short-term general hospital (02) ==
LOC: BURERS 11:44
DX: E11.10 Type 2 diabetes mellitus with ketoacidosis without coma (principal); I10 Essential (primary) hypertension; E11.40 Type 2 diabetes mellitus with diabetic neuropathy, unspecified; F17.210 Nicotine dependence, cigarettes, uncomplicated
CPT/HCPCS: 36415; 36416; 71045; 74176; 80053; 81001; 82010; 82330; 82435; 82803; 83690; 83735; 84132; 84295; 84484; 85014; 85025; 87040; 93005; 94760; 96361; 96365; 96375; J1815; J2405; J2543

== ENCOUNTER 2024-07-31 11:13 | Emergency (ER) | payer OTHER ==
[2024-07-31] MEDS ORDERED: Iopamidol 370 76% 100 ML VIAL ONE (11:24)
[2024-07-31 11:57] LABS: #Basophils 0.1 thou/uL (0.0-0.2); #Eosinophils 0.1 thou/uL (0.0-0.7); #Lymphocytes 1.8 thou/uL (1.20-3.40); #Monocytes 0.6 thou/uL (0.11-0.59); #Neutrophils 7.6 thou/uL (1.40-6.50); %Basophils 0.9 % (0.0-1.0); %Eosinophils 0.8 % (0.0-10.0); %Lymphocytes 17.9 % (21.0-51.0); %Monocytes 5.9 % (0.0-10.0); %Neutrophils 74.5 % (42.0-75.0); Hematocrit 37.2 % (42.0-52.0); Hemoglobin 12.3 g/dL (14.0-18.0); Mean Corpuscular HGB CONC 33.2 g/dL (32.0-36.0); Mean Corpuscular Hemoglobin 28.5 pg (27.0-31.0); Mean Platelet Volume 7.1 fL (7.4-10.4); Platelet Count 313 10x3/uL (130-400); RBC Distribution Width 12.2 % (11.5-14.5); Red Blood Cell (RBC) Count 4.32 mill/uL (4.70-6.10); White Blood Cell (WBC) Count 10.2 10x3/uL (4.8-10.8)
[2024-07-31 12:11] LABS: Base Excess-Venous -6.3 mmol/L (-2.0 to 3.0); Bicarbonate (HCO3v) 18.7 mmol/L (22.0-28.0); CO2 Tension (PvCO2) 34.6 mmHg (42.0-51.0); Chloride 95 mmol/L (98-107); Hemoglobin - Calc 12.9 g/dL (14.0-18.0); Potassium 4.9 mmol/L (3.5-5.1); Sodium 126 mmol/L (138-145); T. Carbon Dioxide 19.8 mmol/L (22.0-28.0); vO2 Saturation-calc 97.3 % (60.0-85.0)
[2024-07-31 12:14] LABS: Bilirubin Small (Negative); Blood, Urine Negative (Negative); Clarity Clear (Clear); Glucose, Urine (Dipstick) 500 mg/dL (Negative); Ketone, Urine > or equal to 80 mg/dL (Negative); Leukocyte Negative (Negative); Nitrite Negative (Negative); Protein, Urine (Dipstick) Negative (Neg-Trace); Urobilinogen 0.2 mg/dL (Less than 2)
[2024-07-31 12:15] LABS: Bacteria/HPF 1+ HPF (None Seen); CAUTI Indications for Culture Dysuria,urgency,freq; RBC/HPF None Seen HPF (0-3); Squamous Epithelial 0-3 HPF (0-3); WBC/HPF None Seen HPF (0-3)
[2024-07-31 12:16] LABS: Urine Culture Reflex No No
[2024-07-31 12:17] LABS: ALT (SGPT) 29 U/L (Less than 45); AST (SGOT) 17 U/L (11-34); Albumin 3.4 g/dL (3.1-4.5); Alkaline Phosphatase 86 U/L (40-110); Anion Gap 25 mmol/L (10-20); BUN (Urea Nitrogen) 20 mg/dL (8.9-20.6); Bilirubin, Total 0.7 mg/dL (0.3-1.2); Calc. Creatinine Clearance 0 mL/min (70-130); Calcium 8.8 mg/dL (7.8-10.44); Carbon Dioxide 17 mmol/L (22-29); Chloride 92 mmol/L (98-107); Estimated GFR 72; Globulin 3.2 g/dL (2.4-3.5); Magnesium 1.8 mg/dL (1.6-2.6); Potassium 5.1 mmol/L (3.5-5.1); Protein, Total 6.6 g/dL (6.0-8.3); Sodium 129 mmol/L (136-145)
[2024-07-31 12:25] LABS: Critical Call Chemistry ERS.KNS@1222; Glucose 467 mg/dL (70-105)
[2024-07-31] MEDS ORDERED: Ondansetron PF 4 MG/2 ML Vial ONE (12:30)
[2024-07-31 13:32] LABS: Troponin I Less than 0.010 ng/mL (< 0.028)
[2024-07-31 14:53] LABS: Troponin I 0.011 ng/mL (< 0.028)
[2024-07-31] MEDS ORDERED: Mag-Al 1200 mg/1200 mg/30 ML UDCUP ONE (18:23)
[2024-07-31] MEDS ORDERED: Lidocaine Viscous Sol 2% 15 ml UD Cup ONE (18:23)
== END 2024-07-31 19:22 | disposition home or self-care (01) ==
LOC: BURERS 11:13
DX: K29.00 Acute gastritis without bleeding (principal); E11.65 Type 2 diabetes mellitus with hyperglycemia; E11.40 Type 2 diabetes mellitus with diabetic neuropathy, unspecified; I10 Essential (primary) hypertension; E78.5 Hyperlipidemia, unspecified; F17.210 Nicotine dependence, cigarettes, uncomplicated; Z79.4 Long term (current) use of insulin; Z79.899 Other long term (current) drug therapy
CPT/HCPCS: 36415; 36416; 71275; 80053; 81001; 82330; 82435; 82803; 83735; 84132; 84295; 84484; 85014; 85025; 93005; 96361; 96374; J2405; Q9967

== ENCOUNTER 2025-02-17 13:34 | Emergency (ER) | payer OTHER ==
[2025-02-17 14:03] LABS: #Basophils 0.1 thou/uL (0.0-0.2); #Eosinophils 0.0 thou/uL (0.0-0.7); #Lymphocytes 1.9 thou/uL (1.20-3.40); #Monocytes 1.1 thou/uL (0.11-0.59); #Neutrophils 9.3 thou/uL (1.40-6.50); %Basophils 1.0 % (0.0-1.0); %Eosinophils 0.1 % (0.0-10.0); %Lymphocytes 15.2 % (21.0-51.0); %Monocytes 8.9 % (0.0-10.0); %Neutrophils 74.9 % (42.0-75.0); Hematocrit 33.6 % (42.0-52.0); Hemoglobin 11.6 g/dL (14.0-18.0); Mean Corpuscular Hemoglobin 29.7 pg (27.0-31.0); Mean Corpuscular Volume 86.0 fl (78.0-98.0); Platelet Count 237 10x3/uL (130-400); Red Blood Cell (RBC) Count 3.90 mill/uL (4.70-6.10); White Blood Cell (WBC) Count 12.5 10x3/uL (4.8-10.8)
[2025-02-17 14:15] LABS: Bicarbonate (HCO3v) 28.7 mmol/L (22.0-28.0); CO2 Tension (PvCO2) 41.5 mmHg (42.0-51.0); Calcium, Ionized 1.14 mmol/L (1.15-1.33); Chloride 96 mmol/L (98-107); Hemoglobin - Calc 12.1 g/dL (14.0-18.0); Potassium 3.8 mmol/L (3.5-5.1); Sodium 134 mmol/L (138-145); T. Carbon Dioxide 29.9 mmol/L (22.0-28.0); vO2 Saturation-calc 80.4 % (60.0-85.0)
[2025-02-17 14:23] LABS: ALT (SGPT) 8 U/L (Less than 45); AST (SGOT) 9 U/L (11-34); Albumin 3.3 g/dL (3.1-4.5); Alkaline Phosphatase 47 U/L (40-110); Anion Gap 16 mmol/L (10-20); BUN (Urea Nitrogen) 26 mg/dL (8.9-20.6); Bilirubin, Total 0.6 mg/dL (0.3-1.2); Calc. Creatinine Clearance 0 mL/min (70-130); Calcium 8.8 mg/dL (7.8-10.44); Carbon Dioxide 27 mmol/L (22-29); Chloride 95 mmol/L (98-107); Globulin 4.1 g/dL (2.4-3.5); Glucose 273 mg/dL (70-105); Magnesium 1.8 mg/dL (1.6-2.6); Potassium 3.9 mmol/L (3.5-5.1); Sodium 134 mmol/L (136-145); Troponin I 0.011 ng/mL (< 0.028)
[2025-02-17 14:33] LABS: Glucose, Urine (Dipstick) Negative (Negative); Leukocyte Moderate (Negative); Protein, Urine (Dipstick) 100 mg/dL (Neg-Trace); Specific Gravity, Urine 1.020 (1.005-1.030)
[2025-02-17 14:38] LABS: Bacteria/HPF 4+ HPF (None Seen); CAUTI Indications for Culture Dysuria,urgency,freq; RBC/HPF 0-3 HPF (0-3); WBC/HPF Greater Than 50 HPF (0-3)
[2025-02-17 14:40] LABS: Urine Culture Reflex Yes Yes
[2025-02-17 14:41] LABS: Lipase Less than 4 U/L (8-78)
[2025-02-17] MEDS ORDERED: cefTRIAXone (ROCEPHIN) 1 GM VIAL ONE (14:45)
== END 2025-02-17 15:28 | disposition home or self-care (01) ==
LOC: BURERS 13:34
DX: N39.0 Urinary tract infection, site not specified (principal); E11.40 Type 2 diabetes mellitus with diabetic neuropathy, unspecified; I10 Essential (primary) hypertension; E78.5 Hyperlipidemia, unspecified; F17.210 Nicotine dependence, cigarettes, uncomplicated; Z79.899 Other long term (current) drug therapy; Z79.4 Long term (current) use of insulin
CPT/HCPCS: 71045; 80053; 81001; 82330; 82435; 82803; 83690; 83735; 84132; 84295; 84484; 85014; 85025; 87077; 87086; 87186; 93005; 96365; J0696

== ENCOUNTER 2025-03-07 13:29 | Emergency (ER) | payer OTHER, MEDICAID ==
[2025-03-07] MEDS ORDERED: Ondansetron PF 4 MG/2 ML Vial ONE (13:48)
[2025-03-07 13:59] LABS: #Basophils 0.1 thou/uL (0.0-0.2); #Eosinophils 0.1 thou/uL (0.0-0.7); #Lymphocytes 1.9 thou/uL (1.20-3.40); #Monocytes 0.9 thou/uL (0.11-0.59); #Neutrophils 9.5 thou/uL (1.40-6.50); %Basophils 1.0 % (0.0-1.0); %Eosinophils 0.6 % (0.0-10.0); %Lymphocytes 15.3 % (21.0-51.0); %Monocytes 7.3 % (0.0-10.0); %Neutrophils 75.7 % (42.0-75.0); Hematocrit 32.6 % (42.0-52.0); Hemoglobin 11.2 g/dL (14.0-18.0); Mean Corpuscular Hemoglobin 29.5 pg (27.0-31.0); Mean Corpuscular Volume 86.2 fl (78.0-98.0); Platelet Count 297 10x3/uL (130-400); Red Blood Cell (RBC) Count 3.78 mill/uL (4.70-6.10); White Blood Cell (WBC) Count 12.5 10x3/uL (4.8-10.8)
[2025-03-07 14:11] LABS: Bicarbonate (HCO3v) 28.0 mmol/L (22.0-28.0); CO2 Tension (PvCO2) 46.1 mmHg (42.0-51.0); Calcium, Ionized 1.19 mmol/L (1.15-1.33); Chloride 94 mmol/L (98-107); Hemoglobin - Calc 13.0 g/dL (14.0-18.0); Potassium 4.4 mmol/L (3.5-5.1); Sodium 133 mmol/L (138-145); T. Carbon Dioxide 29.5 mmol/L (22.0-28.0); vO2 Saturation-calc 75.7 % (60.0-85.0)
[2025-03-07 14:13] LABS: Glucose, Urine (Dipstick) 250 mg/dL (Negative); Leukocyte Moderate (Negative); Protein, Urine (Dipstick) 100 mg/dL (Neg-Trace); Specific Gravity, Urine 1.020 (1.005-1.030)
[2025-03-07] MEDS ORDERED: Acetaminophen 500 MG TAB ONE (14:18)
[2025-03-07 14:19] LABS: ALT (SGPT) 9 U/L (Less than 45); AST (SGOT) 11 U/L (11-34); Albumin 3.4 g/dL (3.1-4.5); Alkaline Phosphatase 56 U/L (40-110); Anion Gap 16 mmol/L (10-20); BUN (Urea Nitrogen) 22 mg/dL (8.9-20.6); Bilirubin, Total 0.8 mg/dL (0.3-1.2); CK (CPK) 47 U/L (30-200); Calc. Creatinine Clearance 0 mL/min (70-130); Calcium 8.9 mg/dL (7.8-10.44); Carbon Dioxide 24 mmol/L (22-29); Chloride 95 mmol/L (98-107); Globulin 4.5 g/dL (2.4-3.5); Glucose 330 mg/dL (70-105); Magnesium 2.0 mg/dL (1.6-2.6); Potassium 4.5 mmol/L (3.5-5.1); Sodium 130 mmol/L (136-145); Troponin I Less than 0.010 ng/mL (< 0.028)
[2025-03-07 14:20] LABS: CAUTI Indications for Culture Dysuria,urgency,freq; RBC/HPF Greater than 50 HPF (0-3); WBC/HPF Greater than 50 HPF (0-3)
[2025-03-07 14:21] LABS: Bacteria/HPF 4+ HPF (None Seen)
[2025-03-07 14:22] LABS: Urine Culture Reflex Yes Yes
[2025-03-07 14:23] LABS: Lipase Less than 4 U/L (8-78)
== END 2025-03-07 14:48 | disposition home or self-care (01) ==
LOC: BURERS 13:29
DX: E87.1 Hypo-osmolality and hyponatremia (principal); I12.9 Hypertensive chronic kidney disease with stage 1 through stage 4 chronic kidney disease, or unspecified chronic kidney disease; E11.22 Type 2 diabetes mellitus with diabetic chronic kidney disease; N18.9 Chronic kidney disease, unspecified; E11.42 Type 2 diabetes mellitus with diabetic polyneuropathy; E78.5 Hyperlipidemia, unspecified; N39.0 Urinary tract infection, site not specified; F17.210 Nicotine dependence, cigarettes, uncomplicated; Z59.71 Insufficient health insurance coverage; Z59.00 Homelessness unspecified; Z55.6 Problems related to health literacy; Z79.899 Other long term (current) drug therapy
CPT/HCPCS: 80053; 81001; 82330; 82435; 82550; 82803; 83690; 83735; 83880; 84132; 84295; 84484; 85014; 85025; 87077; 87086; 87186; 96361; 96374; J2405

== ENCOUNTER 2025-03-21 15:01 | Emergency (ER) | payer OTHER ==
[2025-03-21 15:36] LABS: #Basophils 0.2 thou/uL (0.0-0.2); #Eosinophils 0.1 thou/uL (0.0-0.7); #Lymphocytes 2.0 thou/uL (1.20-3.40); #Monocytes 0.7 thou/uL (0.11-0.59); #Neutrophils 14.1 thou/uL (1.40-6.50); %Basophils 1.0 % (0.0-1.0); %Eosinophils 0.7 % (0.0-10.0); %Lymphocytes 11.9 % (21.0-51.0); %Monocytes 3.8 % (0.0-10.0); %Neutrophils 82.5 % (42.0-75.0); Hematocrit 29.9 % (42.0-52.0); Hemoglobin 10.5 g/dL (14.0-18.0); Mean Corpuscular Hemoglobin 29.5 pg (27.0-31.0); Mean Corpuscular Volume 84.2 fl (78.0-98.0); Platelet Count 309 10x3/uL (130-400); Red Blood Cell (RBC) Count 3.55 mill/uL (4.70-6.10); White Blood Cell (WBC) Count 17.0 10x3/uL (4.8-10.8)
[2025-03-21 15:44] LABS: Glucose, Urine (Dipstick) Negative (Negative); Leukocyte Moderate (Negative); Protein, Urine (Dipstick) 30 mg/dL (Neg-Trace); Specific Gravity, Urine 1.015 (1.005-1.030)
[2025-03-21 15:47] LABS: ALT (SGPT) 23 U/L (Less than 45); AST (SGOT) 22 U/L (11-34); Albumin 3.6 g/dL (3.1-4.5); Alkaline Phosphatase 48 U/L (40-110); Anion Gap 16 mmol/L (10-20); BUN (Urea Nitrogen) 20 mg/dL (8.9-20.6); Bilirubin, Total 0.3 mg/dL (0.3-1.2); Calc. Creatinine Clearance 0 mL/min (70-130); Calcium 8.5 mg/dL (7.8-10.44); Carbon Dioxide 20 mmol/L (22-29); Chloride 97 mmol/L (98-107); Globulin 3.7 g/dL (2.4-3.5); Glucose 189 mg/dL (70-105); Lipase 15 U/L (8-78); Potassium 4.3 mmol/L (3.5-5.1); Sodium 129 mmol/L (136-145)
[2025-03-21 15:51] LABS: Bacteria/HPF 1+ HPF (None Seen); CAUTI Indications for Culture Alt mental st,lethar; RBC/HPF 0-3 HPF (0-3); WBC/HPF 21-50 HPF (0-3)
[2025-03-21 15:54] LABS: Urine Culture Reflex Yes Yes
[2025-03-21] MEDS ORDERED: Ondansetron PF 4 MG/2 ML Vial ONE (16:38)
== END 2025-03-21 17:09 | disposition home or self-care (01) ==
LOC: BURERS 15:01
DX: N39.0 Urinary tract infection, site not specified (principal); R19.7 Diarrhea, unspecified; E11.42 Type 2 diabetes mellitus with diabetic polyneuropathy; I10 Essential (primary) hypertension; E78.5 Hyperlipidemia, unspecified; F17.210 Nicotine dependence, cigarettes, uncomplicated; Z79.899 Other long term (current) drug therapy
CPT/HCPCS: 74177; 80053; 81001; 83690; 85025; 87086; 96374; Q9967

== ENCOUNTER 2025-04-08 13:17 | Emergency (ER) | payer OTHER, MEDICAID ==
[2025-04-08 13:41] LABS: Glucose, Urine (Dipstick) >=1000 mg/dL (Negative); Leukocyte Moderate (Negative); Protein, Urine (Dipstick) 30 mg/dL (Neg-Trace); Specific Gravity, Urine 1.020 (1.005-1.030)
[2025-04-08 13:45] LABS: Bacteria/HPF None Seen HPF (None Seen); CAUTI Indications for Culture Dysuria,urgency,freq; WBC/HPF 0-3 HPF (0-3)
[2025-04-08] MEDS ORDERED: Ondansetron PF 4 MG/2 ML Vial ONE (13:45)
[2025-04-08 13:46] LABS: Urine Culture Reflex No No
[2025-04-08 13:51] LABS: #Basophils 0.1 thou/uL (0.0-0.2); #Eosinophils 0.1 thou/uL (0.0-0.7); #Lymphocytes 1.4 thou/uL (1.20-3.40); #Monocytes 0.5 thou/uL (0.11-0.59); #Neutrophils 9.8 thou/uL (1.40-6.50); %Basophils 1.1 % (0.0-1.0); %Eosinophils 1.1 % (0.0-10.0); %Lymphocytes 11.3 % (21.0-51.0); %Monocytes 4.4 % (0.0-10.0); %Neutrophils 82.0 % (42.0-75.0); Hematocrit 35.3 % (42.0-52.0); Hemoglobin 12.4 g/dL (14.0-18.0); Mean Corpuscular Hemoglobin 30.0 pg (27.0-31.0); Mean Corpuscular Volume 85.2 fl (78.0-98.0); Platelet Count 161 10x3/uL (130-400); Red Blood Cell (RBC) Count 4.14 mill/uL (4.70-6.10); White Blood Cell (WBC) Count 12.0 10x3/uL (4.8-10.8)
[2025-04-08 14:03] LABS: CO2 Tension (PvCO2) 41.2 mmHg (42.0-51.0)
[2025-04-08 14:04] LABS: Bicarbonate (HCO3v) 25.0 mmol/L (22.0-28.0); vO2 Saturation-calc 98.7 % (60.0-85.0)
[2025-04-08 14:05] LABS: Calcium, Ionized 1.09 mmol/L (1.15-1.33); Chloride 101 mmol/L (98-107); Hemoglobin - Calc 13.7 g/dL (14.0-18.0); Potassium 4.7 mmol/L (3.5-5.1); Sodium 133 mmol/L (138-145); T. Carbon Dioxide 26.3 mmol/L (22.0-28.0)
[2025-04-08 14:08] LABS: ALT (SGPT) 14 U/L (Less than 45); AST (SGOT) 20 U/L (11-34); Albumin 4.1 g/dL (3.1-4.5); Alkaline Phosphatase 56 U/L (40-110); Anion Gap 28 mmol/L (10-20); BUN (Urea Nitrogen) 19 mg/dL (8.9-20.6); Bilirubin, Total 0.7 mg/dL (0.3-1.2); Calc. Creatinine Clearance 0 mL/min (70-130); Calcium 9.3 mg/dL (7.8-10.44); Carbon Dioxide 20 mmol/L (22-29); Chloride 92 mmol/L (98-107); Globulin 3.6 g/dL (2.4-3.5); Lipase 8 U/L (8-78); Magnesium 1.9 mg/dL (1.6-2.6); Potassium 4.7 mmol/L (3.5-5.1); Sodium 135 mmol/L (136-145)
[2025-04-08 14:10] LABS: Glucose 468 mg/dL (70-105)
[2025-04-08 15:53] LABS: ALT (SGPT) 14 U/L (Less than 45); AST (SGOT) 20 U/L (11-34); Albumin 3.7 g/dL (3.1-4.5); Alkaline Phosphatase 48 U/L (40-110); Anion Gap 23 mmol/L (10-20); BUN (Urea Nitrogen) 19 mg/dL (8.9-20.6); Bilirubin, Total 0.6 mg/dL (0.3-1.2); Calc. Creatinine Clearance 0 mL/min (70-130); Calcium 8.6 mg/dL (7.8-10.44); Carbon Dioxide 21 mmol/L (22-29); Chloride 98 mmol/L (98-107); Globulin 3.0 g/dL (2.4-3.5); Glucose 387 mg/dL (70-105); Potassium 4.1 mmol/L (3.5-5.1); Sodium 138 mmol/L (136-145)
== END 2025-04-08 16:37 | disposition home or self-care (01) ==
LOC: BURERS 13:17
DX: K52.9 Noninfective gastroenteritis and colitis, unspecified (principal); E11.65 Type 2 diabetes mellitus with hyperglycemia; E11.40 Type 2 diabetes mellitus with diabetic neuropathy, unspecified; I10 Essential (primary) hypertension; E78.5 Hyperlipidemia, unspecified; F17.290 Nicotine dependence, other tobacco product, uncomplicated; F17.210 Nicotine dependence, cigarettes, uncomplicated; Z79.899 Other long term (current) drug therapy
CPT/HCPCS: 36415; 36416; 74177; 80053; 81001; 82330; 82435; 82803; 83605; 83690; 83735; 84132; 84295; 85014; 85025; 93005; 94760; 96374; 96375; J1815; Q9967

== ENCOUNTER 2025-04-18 17:08 | Observation (INO) | payer OTHER, MEDICAID ==
[2025-04-18 17:48] LABS: Glucose, Urine (Dipstick) Negative (Negative); Leukocyte Trace (Negative); Protein, Urine (Dipstick) Negative (Neg-Trace); Specific Gravity, Urine 1.020 (1.005-1.030)
[2025-04-18 17:53] LABS: Hematocrit 26.3 % (42.0-52.0); Hemoglobin 9.8 g/dL (14.0-18.0); Mean Corpuscular Hemoglobin 30.2 pg (27.0-31.0); Mean Corpuscular Volume 81.2 fl (78.0-98.0); Platelet Count 501 10x3/uL (130-400); Red Blood Cell (RBC) Count 3.24 mill/uL (4.70-6.10); White Blood Cell (WBC) Count 9.3 10x3/uL (4.8-10.8)
[2025-04-18 17:54] LABS: #Basophils 0.1 thou/uL (0.0-0.2); #Eosinophils 0.3 thou/uL (0.0-0.7); #Lymphocytes 2.2 thou/uL (1.20-3.40); #Monocytes 1.0 thou/uL (0.11-0.59); #Neutrophils 5.7 thou/uL (1.40-6.50); %Basophils 1.1 % (0.0-1.0); %Eosinophils 3.1 % (0.0-10.0); %Lymphocytes 24.1 % (21.0-51.0); %Monocytes 10.6 % (0.0-10.0); %Neutrophils 61.1 % (42.0-75.0)
[2025-04-18 17:58] LABS: CAUTI Indications for Culture Pelvic or flank pain; RBC/HPF 0-3 HPF (0-3)
[2025-04-18 17:58] LABS: ALT (SGPT) 16 U/L (Less than 45); AST (SGOT) 26 U/L (11-34); Albumin 3.2 g/dL (3.1-4.5); Alkaline Phosphatase 50 U/L (40-110); Anion Gap 16 mmol/L (10-20); BUN (Urea Nitrogen) 17 mg/dL (8.9-20.6); Bilirubin, Total 0.3 mg/dL (0.3-1.2); Calc. Creatinine Clearance 0 mL/min (70-130); Calcium 9.1 mg/dL (7.8-10.44); Carbon Dioxide 27 mmol/L (22-29); Chloride 101 mmol/L (98-107); Globulin 3.8 g/dL (2.4-3.5); Glucose 90 mg/dL (70-105); Lipase 12 U/L (8-78); Potassium 4.2 mmol/L (3.5-5.1); Sodium 140 mmol/L (136-145)
[2025-04-18 17:59] LABS: Bacteria/HPF 1+ HPF (None Seen)
[2025-04-18 18:01] LABS: Urine Culture Reflex Yes Yes
[2025-04-18 18:07] LABS: MDiff Complete? YES; Platelet Adequacy Comment Appears Increased
[2025-04-18 21:50] VITALS: BMI 19.5
[2025-04-18] MEDS ORDERED: Albuterol 200 PUFF (6.7GM INHALER) INH PRN (22:36)
[2025-04-18] MEDS ORDERED: Acetaminophen 325 MG TAB PO PRN (22:45)
[2025-04-18] MEDS ORDERED: Ondansetron PF 4 MG/2 ML Vial IVP PRN (22:45)
[2025-04-18] MEDS: Ondansetron PF 4 MG/2 ML Vial ONE (22:48)
[2025-04-18] MEDS: LevoFLOXacin D5W 500 mg (100 mL) BAG ONE (22:49)
[2025-04-18] MEDS: Lactulose 20 GM (30 mL) UDCUP PO SCH (23:39)
[2025-04-18] MEDS: Gabapentin 300 MG CAP PO SCH (23:40)
[2025-04-18] MEDS: [UNRECOGNIZED DRUG - REMARK] FS SCH (23:42)
[2025-04-18] MEDS: Gabapentin 300 MG CAP ONE (23:42)
[2025-04-18] MEDS: Pantoprazole 40 MG DR.TAB PO SCH (23:42)
[2025-04-18] MEDS: Pantoprazole 40 MG DR.TAB ONE (23:43)
[2025-04-19 04:49] LABS: #Basophils 0.2 thou/uL (0.0-0.2); #Eosinophils 0.3 thou/uL (0.0-0.7); #Lymphocytes 2.8 thou/uL (1.20-3.40); #Monocytes 0.9 thou/uL (0.11-0.59); #Neutrophils 4.8 thou/uL (1.40-6.50); %Basophils 1.9 % (0.0-1.0); %Eosinophils 3.3 % (0.0-10.0); %Lymphocytes 31.0 % (21.0-51.0); %Monocytes 10.2 % (0.0-10.0); %Neutrophils 53.6 % (42.0-75.0); Hematocrit 26.7 % (42.0-52.0); Hemoglobin 9.5 g/dL (14.0-18.0); Mean Corpuscular Hemoglobin 29.6 pg (27.0-31.0); Mean Corpuscular Volume 83.5 fl (78.0-98.0); Platelet Count 506 10x3/uL (130-400); Red Blood Cell (RBC) Count 3.20 mill/uL (4.70-6.10); White Blood Cell (WBC) Count 9.0 10x3/uL (4.8-10.8)
[2025-04-19 05:19] LABS: ALT (SGPT) 15 U/L (Less than 45); AST (SGOT) 23 U/L (11-34); Albumin 3.1 g/dL (3.1-4.5); Alkaline Phosphatase 48 U/L (40-110); Anion Gap 16 mmol/L (10-20); BUN (Urea Nitrogen) 18 mg/dL (8.9-20.6); Bilirubin, Total 0.4 mg/dL (0.3-1.2); Calc. Creatinine Clearance 57 mL/min (70-130); Calcium 8.9 mg/dL (7.8-10.44); Carbon Dioxide 24 mmol/L (22-29); Chloride 99 mmol/L (98-107); Globulin 3.8 g/dL (2.4-3.5); Glucose 141 mg/dL (70-105); Potassium 4.4 mmol/L (3.5-5.1); Sodium 135 mmol/L (136-145)
[2025-04-19] MEDS: Rosuvastatin 10 MG TAB PO SCH (08:21)
[2025-04-19] MEDS: Gabapentin 300 MG CAP PO SCH (08:21)
[2025-04-19] MEDS: Pantoprazole 40 MG DR.TAB PO SCH (08:22)
[2025-04-19] MEDS: Losartan 25 MG TAB PO SCH (08:22)
[2025-04-19] MEDS: Lantus 1000 UNITS/10 ML VIAL SC SCH (08:23)
[2025-04-19] MEDS: Lactulose 20 GM (30 mL) UDCUP PO SCH (08:23)
[2025-04-19] MEDS: [UNRECOGNIZED DRUG - REMARK] FS SCH (08:24)
[2025-04-19] MEDS: LevoFLOXacin 500 mg/D5W 500 MG in Premix 1 BAG IVPB SCH (21:59)
[2025-04-19] MEDS: Diphenoxylate HCl/Atropine Tablet PO PRN (22:00)
[2025-04-19] MEDS: Enoxaparin 30 MG (0.3 mL) SYRINGE SC SCH (22:00)
[2025-04-19] MEDS ORDERED: Dextrose 50% Abboject 50 ML SYRINGE SLOW IVP PRN (22:45)
[2025-04-19] MEDS ORDERED: Glucagon 1 MG/ML KIT IM PRN (22:45)
[2025-04-20 20:38] VITALS: BP 111/66; TEMP 97.6
== END 2025-04-20 20:55 | disposition short-term general hospital (02) ==
LOC: BURERS 17:08 → BURMED 20:38 → INTOOBSV 22:39 → OBSVTOIN 22:39
PROVIDERS: ADMIT Family Medicine; ATTEND Family Medicine
DX: N39.0 Urinary tract infection, site not specified (principal); E10.65 Type 1 diabetes mellitus with hyperglycemia; E10.43 Type 1 diabetes mellitus with diabetic autonomic (poly)neuropathy; E78.2 Mixed hyperlipidemia; I10 Essential (primary) hypertension; K31.84 Gastroparesis; F17.200 Nicotine dependence, unspecified, uncomplicated; Z79.4 Long term (current) use of insulin; Z79.899 Other long term (current) drug therapy
CPT/HCPCS: 36415; 36416; 71045; 80053; 81001; 83605; 83690; 85025; 87086; 93005; 96361; 96374; 96375; G0378; J1650; J1815; J1956; Q0162; Q0169